=== PATIENT | female | born 1955 | race African-American/Black ===

== ENCOUNTER 2019-10-10 00:12 | Emergency (ER) | payer OTHER ==
--- OUTSIDE RECORDS SUMMARY | 2019-10-10 00:15 | XMS REPORT | Continuity of Care Document ---
:1955 Author Organization [facility] t Address [address] [place] [address] Care Team Providers Name Role Phone Catherine Bo Attending Clinician Provider, Urgent Care Attending Clinician Unavailable Problems This patient has no known problems. Allergies, Adverse Reactions, Alerts This patient has no known allergies or adverse reactions. Medications This patient has no known medications. Procedures This patient has no known procedures. Encounters Start End Encounter Admission Attending Care Care Encounter Source Date/Time Date/Time Type Type Clinicians Facility Department ID 2019-10-09 2019-10-09 Telephone Hussain [facility] [id number] 00:00:00 00:00:00 [facility] [id number] [place] [id number] Professio [phone] [phone] 2019-10-07 2019-10-07 Urgent Provider, [facility] [id number] 11:06:10 11:26:10 Care [facility] [id number] Care [place] [id number] Professio [phone] nal [phone] Results This patient has no known results.
--- OUTSIDE RECORDS SUMMARY | 2019-10-10 00:16 | XMS REPORT | Summary of Care ---
:1955 Author Organization [facility] Address [address] [place] [address] Care Team Providers Name Role Phone Pete Grace Primary Care Provider Reason for Visit Reason Comments Sinus Problem Left side of face pain Encounter Details Date Type Department Care Team Description 10/07/2019 Urgent Care [facility] Family Marcela Mejia FNP [address] [place] [id number] Acute non-recurrent pansinusitis (Primar y Dx); [facility] Provider, [facility] Acute URI; [address] [place] [address] [place] [address] Allergies Active Allergy Reactions Severity Noted Date Comments Codeine Other - See comments 12/17/2013 Pt stat es she gets "spaced out" documented as of this encounter (statuses as of 10/07/2019) Medications Medication Sig Dispensed Refills Start Date End Date Status metoprolol tartrate Take 100 mg by 0 Active (LOPRESSOR) 100 mg mouth 2 (two) tablet times daily. linagliptin (TRADJENTA) Take 5 mg by 0 Active 5 mg Tab mouth daily. insulin glargine inject 20 Units 0 Active (LANTUS) 100 unit/mL under the skin injection at bedtime. lisinopril-hydrochloroth Take 1 Tab by 0 Active iazide mouth daily. (PRINZIDE,ZESTORETIC) 20-25 mg per tablet Cholecalciferol, Vitamin Take 2,000 Units 0 Active D3, (VITAMIN D3) 2,000 by mouth daily. unit Cap cyclobenzaprine Take 2 Tabs by 180 Tab 0 02/11/2015 Active (FLEXERIL) 5 mg mouth at bedtime tabletIndications: as needed for Fibromyalgia Muscle Spasms. citalopram (CELEXA) 20 Take 2 Tabs by 180 Tab 0 02/11/2015 Active mg tabletIndications: mouth daily. Fibromyalgia Additional information Patient taking differently: 20 mg Oral DAILY, Reported on 05/05/2015 10:56 AM amoxicillin-clavulanate Take 1 20 tablet 0 10/07/201910/16 Active (AUGMENTIN) 875-125 mg per tablet by tabletIndications: Acute mouth 2 non-recurrent pansinusitis (two) times daily for 10 days. fluticasone propionate 50 Use 2 16 g 0 10/07/2019 Active mcg/actuation nasal Sprays in sprayIndications: Acute each non-recurrent pansinusitis, nostril Acute URI daily. loratadine 10 mg Take 1 30 tablet 0 10/07/2019 Ac tive tabletIndications: Acute tablet by non-recurrent pansinusitis, mouth Acute URI daily. atorvastatin (LIPITOR) 20 Take by 0 10/28/2014 Discontinued mg tablet mouth at (Discontin ued bedtime. by another clinician) metFORMIN (GLUCOPHAGE) Take 1,000 0 2019 Discontinued 1,000 mg tablet mg by (Dis continued mouth 2 by another (two) clinician) times daily with meals. documented as of this encounter (statuses as of 10/07/2019) Active Problems Problem Noted Date LEO on CPAP 05/05/2015 Transaminitis 10/28/2014 Positive anti-CCP test 04/29/2014 Rheumatoid factor positive 12/17/2013 Fibromyalgia 12/17/2013 Sleep apnea 12/17/2013 Depression 12/17/2013 FDC current use of non-steroidal anti-inflammato whitney (NSAID) 12/17/2013 Sicca 12/17/2013 documented as of this encounter (statuses as of 10/07/2019) Social History Tobacco Use Types Packs/Day Years Used Date Never Smoker Smokeless Tobacco: Never Used Alcohol Use Drinks/Week oz/Week Comments No Sex Assigned at Date Recorded Not on file Job Start Date Occupation Industry Not on file Not on file Not on file Travel History Travel Start Travel End No recent travel history available. documented as of this encounter Last Filed Vital Signs Vital Sign Reading Time Taken Comments Blood Pressure 164/82 10/07/2019 11:22 AM CDT Pulse 96 10/07/2019 11:19 AM CDT Temperature 36.8 C (98.2 F) 10/07/2019 11:19 AM CDT Respiratory Rate 18 10/07/2019 11:19 AM CDT Oxygen Saturation 99% 10/07/2019 11:19 AM CDT Inhaled Oxygen Concentration - - Weight 89.4 kg (197 lb) 10/07/2019 11:19 AM CDT Height 152.4 cm (5') 10/07/2019 11:19 AM CDT Body Mass Index 38.47 10/07/2019 11:19 AM CDT documented in this encounter Progress Notes Angela Nixon PA - 10/07/2019 11:20 AM CDT Cc: Chief Complaint Patient presents with Eye Problem Left side of face pain Giovanna Bailon is a 64 year old female. Patient presents with URI symptoms that began 6 days ago. Believes she has a sinus infection. Travel: no. COVID19 exposure? no. Sick Contacts? no PCP-provider in [place] Sinus Problem Pain details: Location: Frontal and maxillary Quality: Pressure Duration: 6 days Chronicity: New Relieved by: ibuprofen helps Worsened by: Nothing Associated symptoms: chills, congestion and sneezing Associated symptoms: no chest pain, no cough, no ear pain, no fatigue, no fever, no headaches, no hoarse voice, no mouth breathing, no nausea, no rhinorrhea, no shortness of breath, no snoring, no sorethroat, no swollen glands, no tooth pain, no vertigo, no vomiting and no wheezing Risk factors: diabetes Allergies Giovanna is allergic to codeine. Medications Outpatient Medications Prior to Visit Medication Sig Dispense Refill lisinopril-hydrochlorothiazide (PRINZIDE,ZESTORETIC) 20-25 mg per tablet Take 1 Tab by mouth daily. metFORMIN (GLUCOPHAGE) 1,000 mg tablet Take 1,000 mg by mouth 2 (two) times daily with meals. citalopram (CELEXA) 20 mg tablet Take 2 Tabs by mouth daily. (Patient taking differently: Take 20 mg by mouth daily.) 180 Tab 0 cyclobenzaprine (FLEXERIL) 5 mg tablet Take 2 Tabs by mouth at bedtime as needed for Muscle Spasms. 180 Tab 0 atorvastatin (LIPITOR) 20 mg tablet Take by mouth at bedtime. Cholecalciferol, Vitamin D3, (VITAMIN D3) 2,000 unit Cap Take 2,000 Units by mouth daily. insulin glargine (LANTUS) 100 unit/mL injection inject 20 Units under the skin at bedtime. linagliptin (TRADJENTA) 5 mg Tab Take 5 mg by mouth daily. metoprolol tartrate (LOPRESSOR) 100 mg tablet Take 100 mg by mouth 2 (two) times daily. No facility-administered medications prior to visit. Histories Past Medical History: Diagnosis Date Depression DM (diabetes mellitus) on insulin HTN (hypertension) Hypertensive retinopathy of both eyes Lymphedema Mitral valve prolapse Positive anti-CCP test low titer at 26, unable to use plaquenil due to hypertensive retinopathy Rheumatoid factor positive 54 from outside [facility], 117 at [facility] Past Surgical History: Procedure Laterality Date HYSTERECTOMY TONSILLECTOMY WITH ADENOIDECTOMY TUBAL LIGATION Social History Socioeconomic History Marital status: Spouse name: Not on file Number of children: Not on file Years of education: Not on file Highest education level: Not on file Occupational History Not on file Social Needs Financial resource strain: Not on file Food insecurity: Worry: Not on file Inability: Not on file Transportation needs: Medical: Not on file Non-medical: Not on file Tobacco Use Smoking status: Never Smoker Smokeless tobacco: Never Used Substance and Sexual Activity Alcohol use: No Drug use: Not on file Sexual activity: Not on file Lifestyle Physical activity: Days per week: Not on file Minutes per session: Not on file Stress: Not on file Relationships Social connections: Talks on phone: Not on file Gets together: Not on file Attends gnosticism service: Not on file Active member of club or organization: Not on file Attends meetings of clubs or organizations: Not on file Relationship status: Not on file Intimate partner violence: Fear of current or ex partner: Not on file Emotionally abused: Not on file Physically abused: Not on file Forced sexual activity: Not on file Other Topics Concern Not on file Social History Narrative Lives at home with and grandson Family History Problem Relation Age of Onset Diabetes Father Diabetes Maternal Aunt Hypertension Mother Hypertension Sister Hypertension Father Review of Systems Constitutional: Positive for chills. Negative for activity change, appetite change, diaphoresis, fatigue and fever. HENT: Positive for congestion, postnasal drip and sneezing. Negative for dental problem, drooling, ear discharge, ear pain, facial swelling, hearing loss, hoarse voice, mouth sores, rhinorrhea, sinus pressure, sore throat, trouble swallowing and voice change. Eyes: Positive for discharge (watery) and itching. Negative for photophobia, pain, redness and visual disturbance. Respiratory: Negative for snoring, cough, choking, chest tightness, shortness of breath and wheezing. Cardiovascular: Negative for chest pain, palpitations and leg swelling. Gastrointestinal: Negative for abdominal pain, constipation, diarrhea, nausea and vomiting. Musculoskeletal: Negative for arthralgias, back pain, gait problem, joint swelling, myalgias, neck pain and neck stiffness. Skin: Negative for color change and rash. Neurological: Negative for dizziness, vertigo, syncope, weakness, light- headedness and headaches. Psychiatric/Behavioral: Negative for confusion. Vital Signs BP (!) 164/82 | Pulse 96 | Temp 36.8 C (98.2 F) (Oral) | Resp 18 | Ht 5' (1.524 m) | Wt 197lb (89.4 kg) | SpO2 99% | BMI 38.47 kg/m Vitals: 10/07/19 1119 10/07/19 1122 BP: (!) 167/85 (!) 164/82 Pulse: 96 Resp: 18 Temp: 36.8 C (98.2 F) TempSrc: Oral SpO2: 99% Weight: 197 lb (89.4 kg) Height: 5' (1.524 m) Physical Exam Constitutional: She is oriented to person, place, and time. She appears well- developed and well-nourished. No distress. HENT: Head: Normocephalic and atraumatic. Right Ear: External ear normal. Left Ear: External ear normal. Nose: Mucosal edema present. No rhinorrhea. Right sinus exhibits no maxillary sinus tenderness and no frontal sinus tenderness. Left sinus exhibits maxillary sinus tenderness and frontal sinus tenderness. Eyes: Pupils are equal, round, and reactive to light. Conjunctivae, EOM and lids are normal. Right eye exhibits no discharge, no exudate and no hordeolum. No foreign body present in the right eye. Lefteye exhibits no discharge, no exudate and no hordeolum. No foreign body present in the left eye. Right conjunctiva is not injected. Right conjunctiva has no hemorrhage. Left conjunctiva is not injected. Left conjunctiva has no hemorrhage. Neck: Normal range of motion. Cardiovascular: Normal rate, regular rhythm and normal heart sounds. Pulmonary/Chest: Effort normal and breath sounds normal. No respiratory distress. She has no wheezes. She has no rales. Abdominal: Soft. Bowel sounds are normal. She exhibits no distension. There is no tenderness. Musculoskeletal: Normal range of motion. She exhibits no edema. Neurological: She is alert and oriented to person, place, and time. Skin: Skin is warm and dry. No rash noted. She is not diaphoretic. No erythema. No pallor. Psychiatric: She has a normal mood and affect. Her behavior is normal. Nursing note and vitals reviewed. Assessment/Plan Acute non-recurrent pansinusitis (primary encounter diagnosis) Acute URI Plan: amoxicillin-clavulanate (AUGMENTIN) 875-125 mg per tablet, fluticasone propionate 50 mcg/actuation nasal spray, COVID-19 (PCR MOLECULAR TESTING), COVID-19 (PCR MOLECULAR TESTING), loratadine 10 mg tablet Afebrile, well appearing, non-toxic, NAD. HR < 100, lungs CTAB, O2 sat 99%. COVID-19 ordered. Likely 2/2 sinusitis. Given duration of symptoms with no improvement with conservative therapy will start on antibiotic therapy. Educated on the following at home care: -Take full course of Augmentin with food and probiotic. -Start flonase: 1-2 sprays in each nostril daily -Start loratadine daily -Take OTC plain Mucinex (guaiafenesin) as needed -Increase water intake -Take over the counter vitamin C/multivitamin with vitamin C -Take Tylenol as needed, avoid nsaids -REST -Wash hands often -Cover mouth when coughing -Wear mask with in the same room/car as others -Gargle with warm salt water as needed -Drink warm liquids as needed. -Throat lozenges as needed -Quarantine until your COVID results are back -Stay in your own bedroom and use a separate bathroom -Keep at least 6 feet from you and others -Avoid sharing personal household items, dishes, glasses, cups, towels -Clean high traffic/touch areas daily. These include but not limited to: doorknobs, refrigerator/cabinet handles, phones, keyboards, tablets, light switches. -Monitor your symptoms. Take your temperature 2 times daily. -Follow-up with PCP as needed, if no improvement. -Monitor your symptoms. Go to the ED if worsening symptoms: chest pain, difficulty breathing, coughing up blood, weakness, dizziness, passing out, AMS. -[facility] handout provided Essential hypertension Plan: BP elevated today. No cp, sob, dizziness, syncope. Managed by PCP in [place]. Encouraged to monitorBP at home and follow-up with PCP. Patient reports understanding and agrees Watch blood pressure: check 2-3 times daily and log. Look for high numbers >= 130/80. Low salt Low caffeine diet Low alcohol Avoid tobacco products. Avoid decongestants Heart Healthy Exercise: total of 150 minutes of cardio: walking,swimming, hiking, biking every week. Heart healthy diet: low fat/carb/sugar diet; increase lean meat-chicken, turkey, fish; increase vegetables/fruits ( still be careful because elevated sugar level) Er--> chest pain, dizziness, passing out, fluttering of heart, shortness of breath. Pt ed/precautions given in detail regarding conditions/medicaitons. Er precautions given. Pt reportsunderstanding and agrees. rtc if s/s worsen or do not improve ; Plan of care, desired health behaviors, goals, Ddx, & any prescribed or OTC medications discussed with patient. Education resources & self management tools provided and reviewed with AVS. Patient/guardian/family verbalized understanding & agrees to plan of care. Barriers to care: NONE Ability to manage care: Good This visit did not involve counseling and coordination that comprised more than 50% of the visit time. Mel Gonzalez MA - 10/07/2019 11:20 AM CDTPatient states " Uh right here on my left side I'm hurting behind my eyeballs going down this side (patient points to the left side of face) of my face. Last or Saturday it started>" documented in this encounter Plan of Treatment Name Type Priority Associated Diagnoses Order S ewa DINHID-19 (PCR MOLECULAR LAB Routine Acute UR I Expected: 10/07/2019, TESTING) Acute non-recurrent Expires: 10/06/2020 pansinusitis Health Maintenance Due Date Last Done Comments DTaP,Tdap,and Td Vaccines (1 - 1966 Tdap) Depression Screening 1967 PAP SMEAR 1976 Breast Cancer Screening 1995 (MAMMOGRAM) COLONOSCOPY 2005 Zoster Recombinant Vaccine 2005 (SHINGRIX) (1 of 2) INFLUENZA VACCINE (#1) 2019 HEPATITIS C (HCV) SCREEN Completed 12/17/2013 PNEUMOCOCCAL 0-64 YEARS COMBINED Aged Out No longer eligible based on SERIES patient's age to complete this topic documented as of this encounter Results Not on filedocumented in this encounter Visit Diagnoses Diagnosis Acute non-recurrent pansinusitis - Prima ry Acute URI Acute upper respiratory infections of un specified site Essential hypertension Unspecified essential hypertension documented in this encounter Advance Directives Name Relationship Healthcare Agent Communication Relationship Roberth Bailon Spouse Primary healthcare agent [email or web address]
--- OUTSIDE RECORDS SUMMARY | 2019-10-10 00:17 | XMS REPORT | Summary of Care ---
:1955 Author Organization [facility] Address [address] [place] [id number] Care Team Providers Name Role Phone Sanjay Pete Primary Care Provider Reason for Visit Reason Comments Results Encounter Details Date Type Department Care Team Description 10/09/2019 Telephone [facility] Family Medicine Lynnette martinez, ASHUTOSH Martins Results - [address] [place] [address] [place] [address] [place] [address] [phone] Allergies Active Allergy Reactions Severity Noted Date Comments Codeine Other - See comments 12/17/2013 Pt stat es she gets "spaced out" documented as of this encounter (statuses as of 10/09/2019) Medications Medication Sig Dispensed Refills Start Date [...] on 05/05/2015 10:56 AM amoxicillin-clavulanate Take 1 tablet 20 tablet 0 10/07/2019 0 10/17/2019 Active (AUGMENTIN) 875-125 mg per by mouth 2 tabletIndications: Acute (two) times non-recurrent pansinusitis daily for 10 days. fluticasone propionate 50 Use 2 Sprays 16 g 0 10/07/2019 Active mcg/actuation nasal in each sprayIndications: Acute nostril daily. non-recurrent pansinusitis, Acute URI loratadine 10 mg Take 1 tablet 30 tablet 0 10/07/2019 Active tabletIndications: Acute by mouth non-recurrent pansinusitis, daily. 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 documented as of this encounter Last Filed Vital Signs Not on filedocumented in this encounter Plan of Treatment Health Maintenance Due Date Last Done Comments [...] Results Not on filedocumented in this encounter Additional Health Concerns Infection Onset Date Last Indicated Resolved Time COVID-19 Rule Out 10/07/2019 10/07/2019 10/09/2019 4: 02 PM CDT documented as of this encounter Insurance Payer Benefit Plan / Subscriber ID Effective Phone Address [facility] Group Dates MARYAN STEINBERG [id number] 2013-Pre [facility]ha [employer] sent [facility] [id number] 2015-Pre [phone] [address] HEALTH CHOICE HEALTH CHOICE sent [phone] [place] [address] documented as of this encounter Advance Directives Name Relationship Healthcare Agent Communication Relationship Roberth Bailon Spouse Primary healthcare agent [email or web address]
[2019-10-10 01:09] LABS: Absolute Lymphocytes (CBC) 2.9 K/uL (0.7-4.9); Basophils % 1.3 % (0-1.3); Hematocrit 41.3 % (36.0-45.0); Lymphocytes % 34.9 % (15.3-44.8); MPV 9.2 fL (7.6-11.3); RBC Red Blood Cell Count 5.18 M/uL (3.86-4.86)
[2019-10-10 01:13] LABS: Protime INR 0.99
[2019-10-10 01:30] LABS: Albumin 3.2 g/dL (3.4-5.0); Bilirubin Direct 0.1 mg/dL (0-0.2); Bilirubin Total 0.3 mg/dL (0.2-1.0); Protein, Total 8.1 g/dL (6.4-8.2); Troponin (Emerg Dept Use Only) 0.04 ng/mL (0.0-0.045)
[2019-10-10 01:31] LABS: Magnesium 2.2 mg/dL (1.8-2.4); Potassium 3.9 mmol/L (3.5-5.1)
--- NOTE | 2019-10-10 02:17 | ER ---
Nurse's Notes [facility] Name: Giovanna Bailon Age: 64 yrs Sex: Female : 1955 Arrival Date: 10/10/2019 Time: 00:18 Bed 3 Private MD: Diagnosis: Headache;Confusional arousals Presentation: 10/09 00:29 Chief complaint: Patient's son or daughter states: She has been losing her memory, its sg gotten worse today, shes just been complaining that shes feeling tired and weak, as well as having a headache that began two days ago but worse tonight. Coronavirus screen: Patient denies a cough. Patient denies shortness of breath or difficulty breathing. Patient denies measured and/or subjective temperature greater than 100.4F prior to today's visit. Patient denies travel on a cruise ship or to a country the [facility] currently lists as an affected area. Patient denies contact with known and/or suspected case of COVID-19. Ebola Screen: Patient negative for fever greater than or equal to 101.5 degrees Fahrenheit, and additional compatible Ebola Virus Disease symptoms Patient denies exposure to infectious person. Patient denies travel to an Ebola-affected area in the 21 days before illness onset. No symptoms or risks identified at this time. Initial Sepsis Screen: Does the patient meet any 2 criteria? No. Patient's initial sepsis screen is negative. Does the patient have a suspected source of infection? No. Patient's initial sepsis screen is negative. Risk Assessment: Do you want to hurt yourself or someone else? Patient reports no desire to harm self or others. Onset of symptoms was October 10, 2019. Care prior to arrival: None. 00:29 Method Of Arrival: Wheelchair sg 00:29 Acuity: SATYA 3 sg Triage Assessment: 00:37 Headache History: Denies prior headaches. General: Appears in no apparent distress. ea Behavior is calm, cooperative, appropriate for age. Pain: Complains of pain in headache. Neuro: Level of Consciousness is awake, alert, obeys commands, Oriented to person, place, time. Derm: Skin is pink, warm \T\ dry. Historical: - Allergies: 00:31 Codeine; sg - PMHx: 00:32 Diabetes - IDDM; sg 00:33 Hypertension; Fibromyalgia; sg - PSHx: 00:31 Hysterectomy; Tubal ligation; Adenoids; Tonsillectomy; sg - Immunization history:: Adult Immunizations up to date. - Social history:: Smoking status: Patient denies any tobacco usage or history of. Screenin:36 Abuse screen: Denies threats or abuse. Nutritional screening: No deficits noted. ea Tuberculosis screening: No symptoms or risk factors identified. Fall Risk Fall in past 12 months (25 points). Assessment: 00:40 Reassessment: See triage assessment. General: Appears in no apparent distress. Behavior ea is appropriate for age. Pain: Complains of pain in forehead. 01:51 Reassessment: Patient and/or family updated on plan of care and expected duration. Pain ea level reassessed. Patient is alert, oriented x 3, equal unlabored respirations, skin warm/dry/pink. 02:29 Reassessment: Patient and/or family updated on plan of care and expected duration. Pain ea level reassessed. Patient is alert, oriented x 3, equal unlabored respirations, skin warm/dry/pink. Discharge instruction given to patient and family. Verbalized the understanding of instruction. Pt left ED ambulatory accompanied by family. Vital Signs: 00:37 BP 174 / 88; Pulse 95; Resp 18; Temp 98.6; Pulse Ox 99% on R/A; Weight 89.36 kg; Height ea 5 ft. 8 in. (172.72 cm); 01:28 BP 139 / 87; Pulse 85; Resp 18; Pulse Ox 99% ; ea 02:31 BP 128 / 70; Pulse 80; Resp 18; Pulse Ox 18% ; ea 00:37 Body Mass Index 29.95 (89.36 kg, 172.72 cm) ea ED Course: 00:18 Patient arrived in ED. ag3 00:25 Boris Okeefe PA is PHCP. jr8 00:25 Milton Andrews MD is Attending Physician. jr8 00:29 Kenya Greenwood, LOUISE is Primary Nurse. ea 00:29 Arm band placed on. sg 00:31 Triage completed. sg 00:36 Patient has correct armband on for positive identification. Bed in low position. Call ea light in reach. Side rails up X 1. Adult w/ patient. 01:24 CT Head Brain wo Cont In Process Unspecified. EDMS 01:26 Inserted saline lock: 20 gauge in left forearm, using aseptic technique. ea 01:56 XRAY Chest (1 view) In Process Unspecified. EDMS 02:16 Omar Aguiar MD is Referral Physician. jr8 02:29 No provider procedures requiring assistance completed. IV discontinued, intact, ea bleeding controlled, No redness/swelling at site. Pressure dressing applied. Administered Medications: No medications were administered Outcome: 02:17 Discharge ordered by . jr8 02:30 Discharged to home ambulatory, with family. ea 02:30 Condition: stable 02:30 Discharge instructions given to patient, Instructed on discharge instructions, follow up and referral plans. Demonstrated understanding of instructions, follow-up care. 02:30 Patient left the ED. ea Signatures: Dispatcher [employer] EDMS Gurpreet Maldonado, RN RN Boris Roberts PA PA jr8 Kenya Greenwood RN RN ea Gomez, Alice ag3
--- NOTE | 2019-10-10 02:17 | EDPHYS ---
Physician Documentation [facility] Name: Giovanna Bailon Age: 64 yrs Sex: Female : 1955 Arrival Date: 10/10/2019 Time: 00:18 Bed 3 Private MD: ED Physician Milton Andrews HPI: 10/09 01:04 This 64 yrs old Black Female presents to ER via Wheelchair with complaints of Headache, jr8 Weakness. 01:04 The patient complains of pain to the forehead. The patient describes the headache as jr8 constant. Onset: The symptoms/episode began/occurred gradually, 7 day(s) ago. Associated signs and symptoms: Pertinent positives: altered mental status, dizziness. Severity of symptoms: At its worst the pain was moderate, in the emergency department the pain has improved. Headache History: Denies prior headaches. The symptoms are alleviated by nothing. the symptoms are aggravated by nothing. The patient has not experienced similar symptoms in the past. The patient has been recently seen by a physician:. Patient stated that she had a syncopal episode about a week ago and was worked up at [facility]. Stated that no acute findings were seen at that time and was discharged home. Stated that she had been having headaches prior to the Syncopal episode. No CT done at that time. Son stated that they came today because for the past three to four days noticed that she has been having memory problems and forgetfulness which she does not normally have. . Historical: - Allergies: 00:31 Codeine; sg - PMHx: 00:32 Diabetes - IDDM; sg 00:33 Hypertension; Fibromyalgia; sg - PSHx: 00:31 Hysterectomy; Tubal ligation; Adenoids; Tonsillectomy; sg - Immunization history:: Adult Immunizations up to date. - Social history:: Smoking status: Patient denies any tobacco usage or history of. ROS: 01:04 Eyes: Negative for injury, pain, redness, and discharge, ENT: Negative for injury, jr8 pain, and discharge, Neck: Negative for injury, pain, and swelling, Cardiovascular: Negative for chest pain, palpitations, and edema, Respiratory: Negative for shortness of breath, cough, wheezing, and pleuritic chest pain, Abdomen/GI: Negative for abdominal pain, nausea, vomiting, diarrhea, and constipation, Back: Negative for injury and pain, MS/Extremity: Negative for injury and deformity, Skin: Negative for injury, rash, and discoloration. 01:04 Neuro: Positive for altered mental status, dizziness, headache, syncope. Exam: 01:04 Eyes: Pupils equal round and reactive to light, extra-ocular motions intact. Lids and jr8 lashes normal. Conjunctiva and sclera are non-icteric and not injected. Cornea within normal limits. Periorbital areas with no swelling, redness, or edema. ENT: Nares patent. No nasal discharge, no septal abnormalities noted. Tympanic membranes are normal and external auditory canals are clear. Oropharynx with no redness, swelling, or masses, exudates, or evidence of obstruction, uvula midline. Mucous membranes moist. Neck: Trachea midline, no thyromegaly or masses palpated, and no cervical lymphadenopathy. Supple, full range of motion without nuchal rigidity, or vertebral point tenderness. No Meningismus. Cardiovascular: Regular rate and rhythm with a normal S1 and S2. No gallops, murmurs, or rubs. Normal PMI, no JVD. No pulse deficits. Respiratory: Lungs have equal breath sounds bilaterally, clear to auscultation and percussion. No rales, rhonchi or wheezes noted. No increased work of breathing, no retractions or nasal flaring. Abdomen/GI: Soft, non-tender, with normal bowel sounds. No distension or tympany. No guarding or rebound. No evidence of tenderness throughout. Back: No spinal tenderness. No costovertebral tenderness. Full range of motion. Skin: Warm, dry with normal turgor. Normal color with no rashes, no lesions, and no evidence of cellulitis. MS/ Extremity: Pulses equal, no cyanosis. Neurovascular intact. Full, normal range of motion. Neuro: Awake and alert, GCS 15, oriented to person, place, time. Some confusion noted to situation. Cranial nerves II-XII grossly intact. Motor strength 5/5 in all extremities. Sensory grossly intact. Cerebellar exam normal. Normal gait. Vital Signs: 00:37 BP 174 / 88; Pulse 95; Resp 18; Temp 98.6; Pulse Ox 99% on R/A; Weight 89.36 kg; Height ea 5 ft. 8 in. (172.72 cm); 01:28 BP 139 / 87; Pulse 85; Resp 18; Pulse Ox 99% ; ea 02:31 BP 128 / 70; Pulse 80; Resp 18; Pulse Ox 18% ; ea 00:37 Body Mass Index 29.95 (89.36 kg, 172.72 cm) ea MDM: 00:25 Patient medically screened. 02:04 Data reviewed: vital signs, nurses notes, lab test result(s), EKG, radiologic studies, CT scan, plain films. Data interpreted: Pulse oximetry: on room air is 99 %. Interpretation: normal. Counseling: I had a detailed discussion with the patient and/or guardian regarding: the historical points, exam findings, and any diagnostic results supporting the discharge/admit diagnosis, lab results, radiology results, the need for outpatient follow up, a neurologist, to return to the emergency department if symptoms worsen or persist or if there are any questions or concerns that arise at home. ED course: No acute findings on labs or imaging. Recommended f/u with neurology for MRI brain and to r/o any other neurodegenerative processes . 10/09 00:46 Order name: Basic Metabolic Panel 10/09 00:46 Order name: CBC with Diff; Complete Time: 01:13 10/09 00:46 Order name: LFT's; Complete Time: :10/09 00:46 Order name: Magnesium; Complete Time: :10/09 00:46 Order name: NT PRO-BNP; Complete Time: :37 10/09 00:46 Order name: PT-INR; Complete Time: 01:16 10/09 00:46 Order name: Troponin (emerg Dept Use Only); Complete Time: :10/09 00:46 Order name: XRAY Chest (1 view) 10/09 00:46 Order name: EKG; Complete Time: 00:49 10/09 00:46 Order name: Cardiac monitoring; Complete Time: :10/09 00:46 Order name: EKG - Nurse/Tech; Complete Time: :10/09 00:46 Order name: IV Saline Lock; Complete Time: 01:26 10/09 00:46 Order name: CT Head Brain wo Cont 10/09 00:48 Order name: Basic Metabolic Panel; Complete Time: 01:37 EDMS 07/18 00:46 Order name: Labs collected and sent; Complete Time: jr8 10/09 00:46 Order name: O2 Per Protocol; Complete Time: jr8 10/09 00:46 Order name: O2 Sat Monitoring; Complete Time: Administered Medications: No medications were administered Disposition: : Co-signature as Attending Physician, Milton Andrews MD. pk Disposition: 10/10/19 02:17 Discharged to Home. Impression: Headache, Confusional arousals. - Condition is Stable. - Discharge Instructions: Confusion, General Headache Without Cause. - Medication Reconciliation Form, Thank You Letter, Antibiotic Education, Prescription Opioid Use form. - Follow up: Omar Aguiar MD; When: 5 - 6 days; Reason: Recheck today's complaints, Continuance of care, Re-evaluation by your physician. - Problem is new. - Symptoms are unchanged. Signatures: Dispatcher [employer] EDNM Gurpreet Maldonado RN Milton Potts MD MD pk Boris Okeefe PA PA jr8 Kenya Greenwood RN RN ea Corrections: (The following items were deleted from the chart) 02:30 02:17 10/10/2019 02:17 Discharged to Home. Impression: Headache; Confusional arousals. ea Condition is Stable. Forms are Medication Reconciliation Form, Thank You Letter, Antibiotic Education, Prescription Opioid Use. Follow up: Omar Aguiar; When: 5 - 6 days; Reason: Recheck today's complaints, Continuance of care, Re-evaluation by your physician. Problem is new. Symptoms are unchanged. jr8
[2019-10-10 03:08] VITALS: TEMP 98.6; O2SAT 99
[2019-10-10 03:09] VITALS: BP 139/87
--- NOTE | 2019-10-10 10:56 | RAD REPORT ---
EXAM DESCRIPTION: Ashley Single View10/10/2019 1:56 am CLINICAL HISTORY: sob COMPARISON: 2014 FINDINGS: The lungs appear clear of acute infiltrate. The heart is borderline enlarged IMPRESSION: No acute abnormalities displayed
--- NOTE | 2019-10-11 08:10 | EKG ---
Test Date: 2019-10-10 Test Time: 01:22:53 Fixing Machine Operator: LESVIA MEASUREMENT RESULTS: Intervals: Rate: 87 NM: 136 QRSD: 74 QT: 380 QTc: 457 [place]: P: 73 NM: 136 QRS: 36 T: 36 INTERPRETIVE STATEMENTS: Normal sinus rhythm Normal ECG Compared to ECG 04/19/2014 06:44:40 No significant changes Electronically Signed On 10-11-19 08:08:58 CDT by Lenny Armenta
--- NOTE | 2019-10-12 08:18 | RAD REPORT ---
EXAM DESCRIPTION: CT - Head Brain Wo Cont - 10/10/2019 7:21 am CLINICAL HISTORY: The patient is 64 years old and is Female; Headache;Mental status change TECHNIQUE: Axial computed tomography images of the head/brain without intravenous contrast. Sagitt al and coronal reformatted images were created and reviewed. This CT exam was performed using one o r more of the following dose reduction techniques: automated exposure control, adjustment of the mA and/or kV according to patient size, and/or use of iterative reconstruction technique. COMPARISON: No relevant prior studies available. FINDINGS: BRAIN: No intracranial hemorrhage, mass effect, or midline shift is seen. There are no e xtra-axial fluid collections. There is patchy hypoattenuation of the deep white matter which is non-s pecific, but most likely owing to chronic small vessel ischemic change in a patient of this age group . The downing-white differentiation is maintained. There is no cerebral edema. VENTRICLES: Unremarkable. No ventriculomegaly. BONES/JOINTS: No acute fracture. SOFT TISSUES: Unremarkable. SINUSES: Unremarkable as visualized. No acute sinusitis. MASTOID AIR CELLS: Unremarkable as visualized. No mastoid effusion. ORBITS: Unremarkable as visualized. IMPRESSION: No acute intracranial findings. Electronically signed by: Madeleine Mcdonald MD 10/10/2019 1:48 AM CDT Due to temporary technical issues with the PACS/Fluency reporting system, reports are being signed by the in house radiologist without review as a courtesy to ensure prompt reporting. The interpreting r adiologist is fully responsible for the content of the report.
== END 2019-10-10 02:30 | disposition home or self-care (01) ==
LOC: ER 00:12
DX: G47.51 Confusional arousals (principal); I10 Essential (primary) hypertension; Z88.5 Allergy status to narcotic agent
CPT/HCPCS: 36415; 70450; 71045; 80048; 80076; 83735; 83880; 84484; 85025; 85610; 93005; 99283

== ENCOUNTER 2019-10-16 12:23 | Observation (INO) | payer OTHER ==
--- OUTSIDE RECORDS SUMMARY | 2019-10-16 12:26 | XMS REPORT | Continuity of Care Document ---
:1955 Author Organization [facility] t Address [address] [place] [address] Care Team Providers Name Role Phone Catherine [...] Facility Department ID 2019-10-09 2019-10-09 Telephone Hussain [facility] [id number] 00:00:00 00:00:00 [facility] [id number] [place] [id number] [facility]io [phone] [address]al [address] 2019-10-07 2019-10-07 Urgent Provider, [facility] [id number] 11:06:10 11:26:10 Care [facility] [id number] Care [place] [id number] Professio [phone] nal [phone] Results This patient has no known results.
--- NOTE | 2019-10-16 12:42 | RAD REPORT ---
EXAM DESCRIPTION: CT - Ct Stroke Brain Wo Cont - 10/16/2019 12:32 pm CLINICAL HISTORY: Slurred speech COMPARISON: October 10, 2019 TECHNIQUE: Computed axial tomography of the head was obtained. All CT scans are performed using dose optimization technique as appropriate and may include automated exposure control or mA/KV adjustment according to patient size. FINDINGS: An intracranial bleed is not seen . The ventricles are normal in caliber. No extra-axial fluid collection is noted. Mild low-density within periventricular, deep and subcortical white matter likely ischemic changes se condary to small vessel disease Fluid within the sinuses/ mastoids is not seen. IMPRESSION: No acute intracranial abnormality is seen. If patient's symptoms persist MRI of the bra in would be recommended. Dr Fajardo of the emergency room was notified at 12:37 p.m. on October 16, 2019
[2019-10-16] MEDS ORDERED: LORazepam 2 MG/ML VIAL ONE (12:44)
[2019-10-16] MEDS ORDERED: levETIRAcetam 1,000 MG in NA CHLORIDE 0.9% 100 ML IV ONE (12:45)
[2019-10-16 12:55] LABS: Absolute Lymphocytes (CBC) 2.7 K/uL (0.7-4.9); Hematocrit 43.8 % (36.0-45.0); Lymphocytes % 24.9 % (15.3-44.8); RBC Red Blood Cell Count 5.48 M/uL (3.86-4.86)
[2019-10-16 12:58] LABS: Protime INR 1.03
[2019-10-16 13:16] LABS: Albumin 3.5 g/dL (3.4-5.0); Bilirubin Direct 0.1 mg/dL (0-0.2); Bilirubin Total 0.5 mg/dL (0.2-1.0); Magnesium 2.2 mg/dL (1.8-2.4); Potassium 3.6 mmol/L (3.5-5.1); Protein, Total 8.7 g/dL (6.4-8.2); Troponin (Emerg Dept Use Only) 0.03 ng/mL (0.0-0.045)
--- NOTE | 2019-10-16 14:19 | RAD REPORT ---
EXAM DESCRIPTION: MRI - Brain Wo Cont - 10/16/2019 2:07 pm CLINICAL HISTORY: Seizure COMPARISON: Head CT October 16, 2019 TECHNIQUE: Axial, sagittal, and coronal magnetic images of the brain were obtained. Contrast was not requested FINDINGS: Mild to moderate signal within periventricular, deep and subcortical white matter probably ischemic changes secondary small vessel disease The skull is sclerotic and thickened. This can be seen if the patient is on chronic seizure medicatio n Diffusion-weighted/ADC mapping does not reveal evidence of acute infarction. The ventricles are normal caliber. An extra-axial fluid collection is not present. Hippocampal gyri normal caliber and signal seizure Fluid within the sinuses/mastoids is not noted IMPRESSION: No acute abnormality is displayed
--- NOTE | 2019-10-16 14:38 | ER ---
Nurse's Notes [facility] Name: Giovanna Bailon Age: 64 yrs Sex: Female : 1955 Arrival Date: 10/16/2019 Time: 12:28 Bed 15 Private MD: Diagnosis: Seizures;Altered mental status, unspecified;Eduard's paralysis (postepileptic) Presentation: 10/15 12:23 Chief complaint: Patient's son or daughter states: "My mom either had a stroke or she ss had a seizure. It started about 30 minutes ago.". Ebola Screen: Patient denies exposure to infectious person. Patient denies travel to an Ebola-affected area in the 21 days before illness onset. Onset of symptoms was October 16, 2019. 12:23 Method Of Arrival: Wheelchair ss 12:23 Acuity: SATYA 1 ss 18:18 Coronavirus screen: Patient denies a cough. Patient denies shortness of breath or ks7 difficulty breathing. Patient denies measured and/or subjective temperature greater than 100.4F prior to today's visit. Patient denies travel on a cruise ship or to a country the [facility] currently lists as an affected area. Patient denies contact with known and/or suspected case of COVID-19. Patient instructed to continue to wear a mask when interacting with others. Patient moved to private room, placed in contact and droplet isolation with eye protection until further assessment. 18:18 Initial Sepsis Screen: Does the patient meet any 2 criteria? No. Patient's initial ks7 sepsis screen is negative. Risk Assessment: Do you want to hurt yourself or someone else? Patient reports no desire to harm self or others. 18:18 Initial Sepsis Screen: Does the patient have a suspected source of infection? No. ks7 Patient's initial sepsis screen is negative. Triage Assessment: 12:45 General: Appears distressed, BIB son POV: pt non-verbal, facial twitch/seizrue in ks7 triage, 2nd seizure with eyes rolling back in head and facial twitching in room witnessed by PA and RNS. son states he went for a walk with pt 1 hour ago and she was off balance. 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 In ED pt able to transfer from wheelchair to bed w/SBA only. pt non-verbal, but able to nod yes and no to questions. facial droop noted to L face, negative arm and leg drift. . Behavior is cooperative, delayed response, non-verbal. Pain: Complains of pain in MENA Quality of pain is described as unable to quantify. Historical: - Allergies: 12:41 Codeine; ss - PMHx: 12:41 Diabetes - IDDM; Fibromyalgia; Hypertension; ss - PSHx: 12:41 Hysterectomy; Tubal ligation; Adenoids; Tonsillectomy; ss - Immunization history:: Adult Immunizations up to date. - Social history:: Smoking status: Patient denies any tobacco usage or history of. Screenin:52 Abuse screen: Denies threats or abuse. Nutritional screening: No deficits noted. ks7 Tuberculosis screening: No symptoms or risk factors identified. Fall Risk No fall in past 12 months (0 pts). Secondary diagnosis (15 points) IV access (20 points). Ambulatory Aid- None/Bed Rest/Nurse Assist (0 pts). Gait- Weak (10 pts.). Mental Status- Overestimates/Forgets Limitations (15 pts.). Total Lima Fall Scale indicates High Risk Score (45 or more points). 12:52 Fall Risk Total Lima Fall Scale indicates High Risk Score (45 or more points). Side ks7 Rails Up X 2 Placed Close to Nursing Station Family Present and informed to notify staff if the need to leave the bedside. Assessment: 12:23 Reassessment: CODE STROKE CALLED. Pt to CT accompanied by me VIA wheelchair. ss Respirations even and unlabored. Pt aphasic. Seizure like activity noted while getting patient out of car. No seizure activity noted during transport to CT. Pt able to transfer self to CT table with minimal assistance. 12:32 Reassessment: Back from CT to exam room 15. Moris BOYKIN, family member and nursing ss staff at bedside to assess patient. 12:35 Reassessment: seizure activity noted again. Lasted 30 seconds. Ativan 1 mg ordered. Pt ss on monitors. 12:52 Reassessment: Patient states symptoms have not improved. pt remains non-verbal, appears ks7 comfortable after 1mg ativan. pt follows commands, nods y/n answers questions.. 14:00 Reassessment: No changes from previously documented assessment. ks7 15:00 Reassessment: Patient states symptoms have improved. ks7 16:04 Reassessment: Patient states symptoms have improved. pt able to respond/answer ks7 questions with less delay. resting comfortably in room. 17:00 Reassessment: Patient states symptoms have improved. ks7 17:45 Neuro: Level of Consciousness is awake, alert, obeys commands, Oriented to person, ks7 place, time, Motor Runner are equal bilaterally Moves all extremities. Gait is unsteady, Speech is normal, Facial symmetry appears normal. 18:02 Reassessment: attempted to call report. line busy no answer. ks7 18:23 Reassessment: son took pt wallet and debit/credit card home. pt has her cell phone and ks7 clothes. Vital Signs: 12:45 BP 143 / 82; Pulse 102; Resp 18; Temp 98.9(O); Pulse Ox 100% on R/A; Pain 0/10; ks7 13:06 BP 123 / 79; Pulse 102; Resp 16; Temp 98.9(O); Pulse Ox 100% on R/A; Pain 0/10; ks7 14:30 BP 143 / 80; Pulse 93; Resp 18; Pulse Ox 98% ; dh4 15:00 BP 136 / 83; Pulse 94; Resp 16; Temp 98(TE); Pulse Ox 100% on R/A; Pain 0/10; ks7 15:45 BP 134 / 72; Pulse 90; Resp 16; Pulse Ox 99% on R/A; Pain 0/10; ks7 16:05 BP 134 / 72; Pulse 93; Resp 18; Temp 97.9(TE); Pulse Ox 98% on R/A; Pain 0/10; ks7 16:09 Pulse Ox 99% on R/A; Pain 0/10; ks7 16:30 BP 116 / 81; Pulse 86; Resp 16; Temp 97.9(TE); Pulse Ox 98% on R/A; Pain 0/10; ks7 17:15 BP 125 / 78; Pulse 86; Resp 16; Temp 97.9(O); Pulse Ox 100% on R/A; Pain 0/10; ks7 18:19 Pulse Ox 100% ; Pain 0/10; ks7 18:26 BP 114 / 79; Pulse 89; Resp 16; Temp 97.9(TE); Pulse Ox 99% on R/A; Pain 0/10; ks7 Vitals: 12:52 Cardiac Rhythm Assessment Regular Sinus tach. ks7 NIH Stroke Scale Scores: 12:40 NIHSS Score: 14 ks7 12:40 NIHSS Score: 1 ks7 12:46 NIHSS Score: 8 jr8 ED Course: 12:28 Patient arrived in ED. hb 12:29 Boris Okeefe PA is PHCP. jr8 12:29 Christiano Fajardo MD is Attending Physician. jr8 12:32 CT Stroke Brain w/o Contrast In Process Unspecified. EDMS 12:42 Triage completed. ss 12:44 Marylou Roberto, RN is Primary Nurse. ks7 12:45 Arm band placed on left wrist. ks7 12:52 Patient has correct armband on for positive identification. Placed in gown. Bed in low ks7 position. Call light in reach. Side rails up X2. Adult w/ patient. 12:52 No provider procedures requiring assistance completed. Inserted saline lock: 20 gauge ks7 in right forearm, using aseptic technique. Blood collected. 12:57 Basic Metabolic Panel Sent. ks7 12:57 CBC with Diff Sent. ks7 12:57 LFT's Sent. ks7 12:57 Magnesium Sent. ks7 12:57 NT PRO-BNP Sent. ks7 12:57 PT-INR Sent. ks7 12:57 Troponin (emerg Dept Use Only) Sent. ks7 13:22 Patient moved to MRI via stretcher. ks7 13:57 MRI - Brain Wo Cont In Process Unspecified. EDMS 14:36 Ge Richard MD is Hospitalizing Provider. jr8 16:09 Urine Dipstick--Ancillary (enter results) Sent. ks7 16:09 Urine Microscopic Only Sent. ks7 18:18 Patient admitted, IV remains in place. ks7 Administered Medications: 13:03 Drug: Keppra 1000 mg Route: IV; Rate: calculated rate; Site: right forearm; ks7 16:09 Follow up: Pulse Ox 99% RA; Pain 0/10 Adult ks7 18:15 Drug: Rocephin 1 grams Route: IV; Rate: calculated rate; Site: right forearm; ks7 18:19 Follow up: Pulse Ox 100% ; Pain 0/10 Adult ks7 Outcome: 14:37 Decision to Hospitalize by Provider. jr8 18:16 Admitted to Med/surg accompanied by tech, via stretcher, room 221, Report called to RN john for 224 18:16 Condition: improved 18:16 Discharge instructions given to patient, family, Instructed on the need for admit, Demonstrated understanding of instructions. 18:34 Patient left the ED. ks7 NIH Stroke Scale - NIH Stroke Score Date: 10/16/2019 Time: 12:40 Total Score = 14 1a. Level of Consciousness (LOC) - 2(Not Alert, obtunded) 1b. Level of Consciousness (LOC) (Year \\T\\ Age) - 2(Neither) 1c. LOC Commands (Open \\T\\ Closes Eyes/Veterinary Assistant) - 2(Neither) 2. Best Gaze (Lateral Gaze Paresis) - 1(Partial gaze palsy) 3. Visual Field Loss - 0(No visual loss) 4. Facial Palsy - 2(Partial paralysis) 5a. Left Arm: Motor (10-second hold) - 0(No drift) 5b. Right Arm: Motor (10-second hold) - 0(No drift) 6a. Left Leg: Motor (5-second hold - always test supine) - 0(No drift) 6b. Right Leg: Motor (5-second hold - always test supine) - 0(No drift) 7. Limb Ataxia (finger/nose \\T\\ heel/weber - test with eyes open) - 0(Absent) 8. Sensory Loss (pinprick arms/legs/face) - 0(Normal) 9. Best Language: Aphasia (description/naming/reading) - 3(Mute, global aphasia) 10. Dysarthria (speech clarity - read or repeat words) - 2(Severe) 11. Extinction and Inattention (visual/tactile/auditory/spatial/personal) - 0(No abnormality) Initials: ks7 NIH Stroke Scale - NIH Stroke Score Date: 10/16/2019 Time: 12:40 Total Score = 1 1a. Level of Consciousness (LOC) - 0(Alert) 1b. Level of Consciousness (LOC) (Year \\T\\ Age) - 0(Both) 1c. LOC Commands (Open \\T\\ Closes Eyes/Veterinary Assistant) - 0(Both) 2. Best Gaze (Lateral Gaze Paresis) - 0(Normal) 3. Visual Field Loss - 0(No visual loss) 4. Facial Palsy - 1(Minor Paralysis) 5a. Left Arm: Motor (10-second hold) - 0(No drift) 5b. Right Arm: Motor (10-second hold) - 0(No drift) 6a. Left Leg: Motor (5-second hold - always test supine) - 0(No drift) 6b. Right Leg: Motor (5-second hold - always test supine) - 0(No drift) 7. Limb Ataxia (finger/nose \\T\\ heel/weber - test with eyes open) - 0(Absent) 8. Sensory Loss (pinprick arms/legs/face) - 0(Normal) 9. Best Language: Aphasia (description/naming/reading) - 0(No aphasia) 10. Dysarthria (speech clarity - read or repeat words) - 0(Normal) 11. Extinction and Inattention (visual/tactile/auditory/spatial/personal) - 0(No abnormality) Initials: ks7 NIH Stroke Scale - NIH Stroke Score Date: 10/16/2019 Time: 12:46 Total Score = 8 1a. Level of Consciousness (LOC) - 1(Not Alert) 1b. Level of Consciousness (LOC) (Year \\T\\ Age) - 2(Neither) 1c. LOC Commands (Open \\T\\ Closes Eyes/Veterinary Assistant) - 0(Both) 2. Best Gaze (Lateral Gaze Paresis) - 0(Normal) 3. Visual Field Loss - 0(No visual loss) 4. Facial Palsy - 1(Minor Paralysis) 5a. Left Arm: Motor (10-second hold) - 0(No drift) 5b. Right Arm: Motor (10-second hold) - 0(No drift) 6a. Left Leg: Motor (5-second hold - always test supine) - 0(No drift) 6b. Right Leg: Motor (5-second hold - always test supine) - 0(No drift) 7. Limb Ataxia (finger/nose \\T\\ heel/weber - test with eyes open) - 0(Absent) 8. Sensory Loss (pinprick arms/legs/face) - 0(Normal) 9. Best Language: Aphasia (description/naming/reading) - 2(Severe aphasia) 10. Dysarthria (speech clarity - read or repeat words) - 2(Severe) 11. Extinction and Inattention (visual/tactile/auditory/spatial/personal) - 0(No abnormality) Initials: jr8 Signatures: Dispatcher [employer] EDWV Elli Baer, LOUISE RN Boris Calixto PA PA jr8 Shakira Adan RN RN Dada Sorto 4 Marylou Roberto RN RN ks7 Corrections: (The following items were deleted from the chart) 12:40 12:23 Reassessment: Back from CT to exam room 15. Moris BOYKIN, family ss member and nursing staff at bedside to assess patient ss
--- NOTE | 2019-10-16 14:38 | EDPHYS ---
Physician Documentation [facility] Name: Giovanna Bailon Age: 64 yrs Sex: Female : 1955 Arrival Date: 10/16/2019 Time: 12:28 Bed 15 Private MD: ED Physician Christiano Fajardo HPI: 10/15 12:46 This 64 yrs old Black Female presents to ER via Wheelchair with complaints of seizures. jr8 12:46 The patient's problem is reported as an apparent seizure, with the patient having jr8 multiple episodes, Episodes lasted less that one minute. Motor activity is described as generalized stiffness, facial twitching dysphasia, incoherent speech. Onset: The symptoms/episode began/occurred acutely, today, at 12:00. Context: the episode(s) was witnessed, by family, occurred at home. Associated signs and symptoms: The patient has no apparent associated signs or symptoms. Severity of symptoms: At their worst the symptoms were moderate in the emergency department the symptoms are unchanged. The patient has not experienced similar symptoms in the past. The patient has been recently seen at the [facility] Emergency Department. Patient seen last week for memory changes. Work up completed and without acute findings. Was told to f/u with neurology which family stated that they have mad appointment but today at approximately noon started to have seizure like activity. Was brought to ED at that time POV for further evaluation . Historical: - Allergies: 12:41 Codeine; ss - PMHx: 12:41 Diabetes - IDDM; Fibromyalgia; Hypertension; ss - PSHx: 12:41 Hysterectomy; Tubal ligation; Adenoids; Tonsillectomy; ss - Immunization history:: Adult Immunizations up to date. - Social history:: Smoking status: Patient denies any tobacco usage or history of. ROS: 12:46 Unable to obtain ROS due to altered mental status. jr8 Exam: 12:46 Radiologist reports: No acute findings on CT jr8 12:46 Eyes: Pupils equal round and reactive to light, extra-ocular motions intact. Lids and lashes normal. Conjunctiva and sclera are non-icteric and not injected. Cornea within normal limits. Periorbital areas with no swelling, redness, or edema. ENT: Nares patent. No nasal discharge, no septal abnormalities noted. Tympanic membranes are normal and external auditory canals are clear. Oropharynx with no redness, swelling, or masses, exudates, or evidence of obstruction, uvula midline. Mucous membranes moist. Neck: Trachea midline, no thyromegaly or masses palpated, and no cervical lymphadenopathy. Supple, full range of motion without nuchal rigidity, or vertebral point tenderness. No Meningismus. Cardiovascular: Regular rate and rhythm with a normal S1 and S2. No gallops, murmurs, or rubs. Normal PMI, no JVD. No pulse deficits. Respiratory: Lungs have equal breath sounds bilaterally, clear to auscultation and percussion. No rales, rhonchi or wheezes noted. No increased work of breathing, no retractions or nasal flaring. Abdomen/GI: Soft, non-tender, with normal bowel sounds. No distension or tympany. No guarding or rebound. Skin: Warm, dry with normal turgor. Normal color with no rashes, no lesions, and no evidence of cellulitis. MS/ Extremity: Pulses equal, no cyanosis. Neurovascular intact. Full, normal range of motion. 12:46 Neuro: Orientation: Not oriented to person, place, time, situation, Mentation: able to follow commands, slow to respond, confused, Memory: unable to test, Cranial nerves: CN I not tested, CN II- XII are normal as tested, extraocular movements are intact, Speech is dysarthric, slowed, slurred, Tongue strength is normal, Motor: moves all fours, Sensation: no obvious gross deficits, seizure activity, grand mal type is displayed. Vital Signs: 12:45 BP 143 / 82; Pulse 102; Resp 18; Temp 98.9(O); Pulse Ox 100% on R/A; Pain 0/10; ks7 13:06 BP 123 / 79; Pulse 102; Resp 16; Temp 98.9(O); Pulse Ox 100% on R/A; Pain 0/10; ks7 14:30 BP 143 / 80; Pulse 93; Resp 18; Pulse Ox 98% ; dh4 15:00 BP 136 / 83; Pulse 94; Resp 16; Temp 98(TE); Pulse Ox 100% on R/A; Pain 0/10; ks7 15:45 BP 134 / 72; Pulse 90; Resp 16; Pulse Ox 99% on R/A; Pain 0/10; ks7 16:05 BP 134 / 72; Pulse 93; Resp 18; Temp 97.9(TE); Pulse Ox 98% on R/A; Pain 0/10; ks7 16:09 Pulse Ox 99% on R/A; Pain 0/10; ks7 16:30 BP 116 / 81; Pulse 86; Resp 16; Temp 97.9(TE); Pulse Ox 98% on R/A; Pain 0/10; ks7 17:15 BP 125 / 78; Pulse 86; Resp 16; Temp 97.9(O); Pulse Ox 100% on R/A; Pain 0/10; ks7 18:19 Pulse Ox 100% ; Pain 0/10; ks7 18:26 BP 114 / 79; Pulse 89; Resp 16; Temp 97.9(TE); Pulse Ox 99% on R/A; Pain 0/10; ks7 NIH Stroke Scale Scores: 12:40 NIHSS Score: 14 ks7 12:40 NIHSS Score: 1 ks7 12:46 NIHSS Score: 8 jr8 MDM: 12:29 Patient medically screened. 8 14:33 Data reviewed: vital signs, nurses notes, lab test result(s), EKG, radiologic studies, jr8 CT scan, MRI. Data interpreted: Pulse oximetry: on room air is 98 %. Interpretation: normal. Counseling: I had a detailed discussion with the patient and/or guardian regarding: the historical points, exam findings, and any diagnostic results supporting the discharge/admit diagnosis, lab results, radiology results, the need for further work-up and treatment in the hospital. Physician consultation: Omar Aguiar MD was called at 14:35, was contacted at 14:35, regarding consult, and will see patient in inpatient room. ED course: Frankie PATEL called and will accept patient for hospitalization . 10/15 12:29 Order name: Basic Metabolic Panel; Complete Time: 13:23 10/15 12:29 Order name: CBC with Diff; Complete Time: 13:03 10/15 12:29 Order name: LFT's; Complete Time: 13:23 10/15 12:29 Order name: Magnesium; Complete Time: 13:23 10/15 12:29 Order name: NT PRO-BNP; Complete Time: 13:10/15 12:29 Order name: PT-INR; Complete Time: 13:23 10/15 12:29 Order name: Troponin (emerg Dept Use Only); Complete Time: 13:23 10/15 12:30 Order name: CT Stroke Brain w/o Contrast; Complete Time: 12:45 10/15 12:44 Order name: MRI - Brain Wo Cont; Complete Time: 14:20 10/15 12:49 Order name: Glucose, Ancillary Testing; Complete Time: 13:03 EDMS 10/15 14:30 Order name: Urine Microscopic Only; Complete Time: 16:56 10/15 15:28 Order name: Urine Dipstick--Ancillary (enter results) hb 10/15 16:32 Order name: Urine Dipstick-Ancillary; Complete Time: 16:42 EDMS 10/15 12:29 Order name: EKG; Complete Time: 12:30 10/15 12:29 Order name: Cardiac monitoring; Complete Time: 12:58 10/15 12:29 Order name: EKG - Nurse/Tech; Complete Time: 12:58 10/15 12:29 Order name: IV Saline Lock; Complete Time: 12:57 10/15 12:29 Order name: Labs collected and sent; Complete Time: 12:10/15 12:29 Order name: O2 Per Protocol; Complete Time: 12:57 10/15 12:29 Order name: O2 Sat Monitoring; Complete Time: 12:57 10/15 12:29 Order name: Glucose Level; Complete Time: 12:56 10/15 14:30 Order name: Urine Dipstick-Ancillary (obtain specimen); Complete Time: 16:09 Administered Medications: 13:03 Drug: Keppra 1000 mg Route: IV; Rate: calculated rate; Site: right forearm; ks7 16:09 Follow up: Pulse Ox 99% RA; Pain 0/10 Adult ks7 18:15 Drug: Rocephin 1 grams Route: IV; Rate: calculated rate; Site: right forearm; ks7 18:19 Follow up: Pulse Ox 100% ; Pain 0/10 Adult ks7 Disposition: 10/16 07:17 Co-signature as Attending Physician, Christiano Fajardo MD I agree with the assessment and kdr plan of care. Disposition: 10/16/19 14:37 Hospitalization ordered by Ge Richard for Inpatient Admission. Preliminary diagnosis are Seizures, Altered mental status, unspecified, Eduard's paralysis (postepileptic). - Bed requested for Telemetry/MedSurg (Inpatient). - Status is Inpatient Admission. ks7 - Condition is Stable. - Problem is new. - Symptoms have improved. NIH Stroke Scale - NIH Stroke Score Date: 10/16/2019 Time: 12:40 Total Score = 14 1a. Level of Consciousness (LOC) - 2(Not Alert, obtunded) 1b. Level of Consciousness (LOC) (Year \T\ Age) - 2(Neither) 1c. LOC Commands (Open \T\ Closes Eyes/Chemist Steroids) - 2(Neither) 2. Best Gaze (Lateral Gaze Paresis) - 1(Partial gaze palsy) 3. Visual Field Loss - 0(No visual loss) 4. Facial Palsy - 2(Partial paralysis) 5a. Left Arm: Motor (10-second hold) - 0(No drift) 5b. Right Arm: Motor (10-second hold) - 0(No drift) 6a. Left Leg: Motor (5-second hold - always test supine) - 0(No drift) 6b. Right Leg: Motor (5-second hold - always test supine) - 0(No drift) 7. Limb Ataxia (finger/nose \T\ heel/weber - test with eyes open) - 0(Absent) 8. Sensory Loss (pinprick arms/legs/face) - 0(Normal) 9. Best Language: Aphasia (description/naming/reading) - 3(Mute, global aphasia) 10. Dysarthria (speech clarity - read or repeat words) - 2(Severe) 11. Extinction and Inattention (visual/tactile/auditory/spatial/personal) - 0(No abnormality) Initials: ks7 NIH Stroke Scale - NIH Stroke Score Date: 10/16/2019 Time: 12:40 Total Score = 1 1a. Level of Consciousness (LOC) - 0(Alert) 1b. Level of Consciousness (LOC) (Year \T\ Age) - 0(Both) 1c. LOC Commands (Open \T\ Closes Eyes/Chemist Steroids) - 0(Both) 2. Best Gaze (Lateral Gaze Paresis) - 0(Normal) 3. Visual Field Loss - 0(No visual loss) 4. Facial Palsy - 1(Minor Paralysis) 5a. Left Arm: Motor (10-second hold) - 0(No drift) 5b. Right Arm: Motor (10-second hold) - 0(No drift) 6a. Left Leg: Motor (5-second hold - always test supine) - 0(No drift) 6b. Right Leg: Motor (5-second hold - always test supine) - 0(No drift) 7. Limb Ataxia (finger/nose \T\ heel/weber - test with eyes open) - 0(Absent) 8. Sensory Loss (pinprick arms/legs/face) - 0(Normal) 9. Best Language: Aphasia (description/naming/reading) - 0(No aphasia) 10. Dysarthria (speech clarity - read or repeat words) - 0(Normal) 11. Extinction and Inattention (visual/tactile/auditory/spatial/personal) - 0(No abnormality) Initials: ks7 NIH Stroke Scale - NIH Stroke Score Date: 10/16/2019 Time: 12:46 Total Score = 8 1a. Level of Consciousness (LOC) - 1(Not Alert) 1b. Level of Consciousness (LOC) (Year \T\ Age) - 2(Neither) 1c. LOC Commands (Open \T\ Closes Eyes/Chemist Steroids) - 0(Both) 2. Best Gaze (Lateral Gaze Paresis) - 0(Normal) 3. Visual Field Loss - 0(No visual loss) 4. Facial Palsy - 1(Minor Paralysis) 5a. Left Arm: Motor (10-second hold) - 0(No drift) 5b. Right Arm: Motor (10-second hold) - 0(No drift) 6a. Left Leg: Motor (5-second hold - always test supine) - 0(No drift) 6b. Right Leg: Motor (5-second hold - always test supine) - 0(No drift) 7. Limb Ataxia (finger/nose \T\ heel/weber - test with eyes open) - 0(Absent) 8. Sensory Loss (pinprick arms/legs/face) - 0(Normal) 9. Best Language: Aphasia (description/naming/reading) - 2(Severe aphasia) 10. Dysarthria (speech clarity - read or repeat words) - 2(Severe) 11. Extinction and Inattention (visual/tactile/auditory/spatial/personal) - 0(No abnormality) Initials: jr8 Signatures: Dispatcher [employer] EDMS Christiano Fajardo MD MD [facility] Elli Baer RN RN Boris Calixto PA PA jr8 Frankie Olsen, WINDSHIELD REPAIR TECHNICIAN-C WINDSHIELD REPAIR TECHNICIAN-Cla1 Anjelica Benjamin Amy, RN RN Marylou Roberto RN RN ks7 Corrections: (The following items were deleted from the chart) 10/15 15:42 14:37 Hospitalization Ordered by Ge Richard MD for Inpatient Admission. eb Preliminary diagnosis is Seizures; Altered mental status, unspecified; Eduard's paralysis (postepileptic). Bed requested for Telemetry/MedSurg (Inpatient). Status is Inpatient Admission. Condition is Stable. Problem is new. Symptoms have improved. jr8 18:34 15:42 10/16/2019 14:37 Hospitalization Ordered by Ge Richard MD for ks7 Inpatient Admission. Preliminary diagnosis is Seizures; Altered mental status, unspecified; Eduard's paralysis (postepileptic). Bed requested for Telemetry/MedSurg (Inpatient). Status is Inpatient Admission. Condition is Stable. Problem is new. Symptoms have improved. eb
--- NOTE | 2019-10-16 15:21 | P.HP ---
Certification for Inpatient Patient admitted to: Observation With expected LOS: <2 Midnights Patient will require the following post-hospital care: None Practitioner: I am a practitioner with admitting privileges, knowledge of patient current condition, hospital course, and medical plan of care. Services: Services provided to patient in accordance with Admission requirements found in Title 42 Section 412.3 of the Code of Federal Regulations <Frankie Olsen - Last Filed: 10/16/19 15:15> Patient History Date of Service: 10/16/19 Reason for admission: New onset seizures History of Present Illness: 64-year-old female with history of diabetes mellitus insulin- dependent and hypertension presents the emergency department for new onset seizures. Patient was out walking with her son when she was noted to seemed Foggy and then lost consciousness. Son brought her an POV to the emergency department, at presentation patient was seizing and after seizure stopped and she was having left-sided facial droop. Dance Hall Host/Hostess equal and strong. Could stroke was called and patient had emergent CT scan without contrast. CT was negative, MRI without contrast was obtained emergently as well. This was also negative. After patient's postictal period the left-sided facial droop resolved. Patient denies any history of seizures. Son states that the patient is doing complaining of unilateral left-sided headaches increasing in frequency over the course of the last week or 2. Son also reports that she was seen approximately 1 week ago in the emergency department for Memory problems. Patient does report that she has a family history of dementia and Alzheimer's. ED provider wishes to admit patient for further evaluation and management. When I saw the patient in the emergency room she was a little bit drowsy although she did receive 1 mg of Ativan IV for seizure-like activity in the emergency department. Patient is oriented x3. Patient be admitted for further evaluation and management. Do not suspect meningitis at this time, patient does not report headache, no fever noted, no nuchal rigidity, Brudzinski and Kernig sign negative. - Past Medical/Surgical History Diabetic: Yes -: DM -: HTN -: fibromyalgia -: mitral valve prolapse -: hysterectomy -: tonsillectomy -: tubal ligation - Family History Mother -: Heart disease, Hypertension, Diabetes, Stroke Sister -: Hypertension, Diabetes Brother -: Diabetes - Social History Alcohol use: No CD- Drugs: No Caffeine use: Yes Place of Residence: Home <Frankie Olsen - Last Filed: 10/16/19 15:15> Date of Service: 10/17/19 <Lalit Richard - Last Filed: 10/17/19 13:03> Allergies codeine Allergy (Verified 04/18/14 19:29) confusion Home Medications: Citalopram [Celexa*] 20 mg PO DAILY 04/18/14 Cyclobenzaprine HCl 10 mg PO BEDTIME 04/18/14 Ergocalciferol (Vitamin D2) [Drisdol] 2,000 units PO DAILY 04/18/14 Folic Acid 1 mg PO DAILY 04/18/14 Insulin Glargine Human [Lantus*] 20 units SQ BEDTIME 04/18/14 Lisinopril/Hydrochlorothiazide [Zestoretic 20-25 mg Tablet] 1 tab PO DAILY 04/18/14 Metoprolol Tartrate [Lopressor*] 100 mg PO BID 04/18/14 Cefuroxime [Ceftin] 500 mg PO BID #14 tab 10/17/19 Insulin Detemir [Levemir] 30 units SQ BEDTIME 10/17/19 Lisinopril [Zestril] 1 tab PO DAILY 10/17/19 levETIRAcetam [Keppra*] 500 mg PO BID #60 tab 10/17/19 Review of Systems 10-point ROS is otherwise unremarkable <Frankie Olsen - Last Filed: 10/16/19 15:15> Physical Examination - Physical Exam General: Alert, In no apparent distress, Oriented x3 HEENT: Atraumatic, Normocephalic, PERRLA, Mucous membr. moist/pink Neck: Supple, No Thyromegaly Respiratory: Clear to auscultation bilaterally, Normal air movement Cardiovascular: No edema, Normal S1 S2 Capillary refill: <2 Seconds Gastrointestinal: Normal bowel sounds, Soft and benign Musculoskeletal: No contractures, No erythema, No tenderness Integumentary: No breakdown, No significant lesion Neurological: Normal speech, Normal strength at 5/5 x4 extr, Normal tone, Sensation intact - Studies Laboratory Data (last 24 hrs) 10/16/19 12:37: PT 12.1, INR 1.03 10/16/19 12:37: WBC 10.8 D, Hgb 14.4, Hct 43.8, Plt Count 311 D 10/16/19 12:37: Sodium 134 L, Potassium 3.6, BUN 25 H, Creatinine 1.03, Glucose 235 H, Magnesium 2.2, Total Bilirubin 0.5, AST 15, ALT 30, Alkaline Phosphatase 105 <Frankie Olsen - Last Filed: 10/16/19 15:15> - Studies Laboratory Data (last 24 hrs) 10/16/19 12:37: PT 12.1, INR 1.03 10/16/19 12:37: Sodium 134 L, Potassium 3.6, BUN 25 H, Creatinine 1.03, Glucose 235 H, Magnesium 2.2, Total Bilirubin 0.5, AST 15, ALT 30, Alkaline Phosphatase 105 <Lalit Richard - Last Filed: 10/17/19 13:03> Assessment and Plan - Plan Assessment New onset seizures Diabetes mellitus type 2-insulin dependent Hypertension Plan New onset seizures: Neurology consult in place. Patient given loading dose of Keppra in the emergency department. Seizure precautions in place, will continue with Keppra 1000 mg IV b.i.d. at this time. Ativan p.r.n. in place for seizure activity. CT and MRI were negative, will order EEG. Appreciate further input from neurology. DVT prophylaxis with Lovenox 40 mg subcutaneous once daily. Will also check thyroid panel. Diabetes mellitus type 2-insulin dependent: Have continued with patient's Lantus but decreased dose to 10 units daily. Also continue a.c. HS Accu-Cheks and sliding scale insulin therapy. Will also check A1c level. Hypertension: Half continue patient's home medications. Discharge Plan: Home Plan to discharge in: 24 Hours - Advance Directives Does patient have a Living Will: No Does patient have a Durable POA for Healthcare: No - Code Status/Comfort Care Code Status Assessed: Yes Time Spent Managing Pts Care (In Minutes): 55 <Frankie Olsen - Last Filed: 10/16/19 15:15> Physician Review: Patient Assessed, Agree with Above Assessment and Plan Physician Review Additional Text: The patient was seen and examined on 10/16/19 Agree with the assessment and plan as documented by the BJ <Lalit Richard - Last Filed: 10/17/19 13:03>
[2019-10-16 16:32] LABS: Urine Blood NEGATIVE (NEG); Urine Glucose NEGATIVE (NEG); Urine Protein TRACE (NEG); Urine pH 5.5 (5.0-7.0)
[2019-10-16 16:53] LABS: Urine Bacteria 20-50 /HPF (<20); Urine Culture Reflex Order REFLEXED; Urine RBC <5 /HPF (NONE SEEN)
[2019-10-16] MEDS ORDERED: ONDANSETRON 4 MG/2 ML VIAL IV PRN (18:15)
[2019-10-16] MEDS ORDERED: LORazepam 2 MG/ML VIAL IV PRN (18:15)
[2019-10-16] MEDS: INSULIN -REGULAR HUMAN 50 UNIT/0.5 ML ML SQ SCH ×2 (18:15→20:44)
[2019-10-16] MEDS ORDERED: ACETAMINOPHEN 500 MG TAB PO PRN (18:15)
[2019-10-16] MEDS ORDERED: D50W 25 GM/50 ML SYRINGE/VIAL IV PRN (18:15)
[2019-10-16] MEDS ORDERED: GLUCAGON 1 MG/VIAL IM PRN (18:15)
[2019-10-16] MEDS ORDERED: CEFTRIAXONE/SWI 1gm 1 GM/10 ML SYR ONE (18:20)
[2019-10-16] MEDS: NA CHLORIDE 0.9% 1,000 ML IV SCH (18:47)
[2019-10-16 18:55] VITALS: O2SAT 99
[2019-10-16 19:59] VITALS: BMI 36.7
[2019-10-16] MEDS: levETIRAcetam 500 MG TAB PO SCH (20:43)
[2019-10-16] MEDS: ENOXAPARIN 40 MG/0.4 ML SQ SCH (20:43)
[2019-10-16] MEDS ORDERED: INSULIN GLARGINE 100 UNITS/ML SQ SCH (21:00)
--- NOTE | 2019-10-16 21:39 | CON ---
Reason For Consultation: Consultation called because of seizures. History Of Present Illness: Ms. Bailon is a 64-year-old patient with poor medication compliance while having diabetes mellitus, recent urinary tract infection on ciprofloxacin, who come s in after seizures. The patient said earlier this week she was reportedly on the toilet when she fe ll off the toilet and had no memory as to why she fell off the toilet, but she apparently did not see k medical attention at that time. However, earlier today, she was out walking with her son when she became "foggy" and then lost consciousness. She was brought to [facility] where she was fou nd to be in seizures. She was treated acutely with Keppra 1000 mg IV and Ativan with cessation of he r seizures. She had a head CT scan that was negative. Also, brain MRI done without contrast showed no acute ischemic or hemorrhagic changes. Post seizure, she had right-sided facial drooping. Follow ing the seizure, she did have left-sided headache and noted that in the 2 weeks prior to her current seizure onset, she also had right-sided headaches and episodes of memory loss or spacing out. She do es have a family history of seizures in a maternal cousin. While the patient was evaluated, she had no evidence of an ongoing systemic infection. Negative Oliver ig's or Brudzinski's. She did not have any fevers, chills, rigors in terms of her examination. Past Medical History: Diabetes mellitus, hypertension, fibromyalgia, mitral valve prolapse. Past Surgical History: Hysterectomy, tonsillectomy, tubal ligation. Allergies: CODEINE. Medications: At home, ciprofloxacin 500 mg twice daily, Celexa 20 mg daily, cyclobenzaprine 10 mg at bedtime, vitamin D2 2000 units daily, folic acid 1 mg daily, Lantus insulin 20 units at bedtime, Zes toretic 20/25 tablet 1 daily, Lopressor 100 mg twice daily. Family History: Again, seizure in maternal cousin. Mother with heart disease, hypertension, diabete s, and stroke; sister with hypertension and diabetes; and brother with diabetes. Social History: Does drink caffeinated beverages, but denies alcohol, tobacco, or IV drug use. Renny es any new supplements, any blows to the head with loss of consciousness. Review of Systems: Aside from mentioned above, she denies any fevers, chills, nausea, vomiting, myalgias, arthralgias, r anthony, psychiatric complaints. No other positives. Physical Examination: Vital Signs: Blood pressure 125/78, pulse 86, respiratory rate 16, temperature 97.9, oxygen saturati on 100%. General: Ms. Bailon is resting in the bed in the emergency room. She is in no acute distress. HEENT: She is normocephalic, atraumatic. Sclerae are anicteric. Oropharynx is pink and moist. Neck: Supple. Chest: Clear. Heart: Regular. Extremities: No edema, cyanosis, or clubbing. Neurologic: She is alert and oriented to person, place, situation, not to the exact date and day of the week, but she did know the year, the month, and place in city. She followed all commands appropr iately. On cranial nerve examination, she has no focal deficits on 2 through 12. On motor examinati on, she has no focal deficits in the arms and legs with 5/5 strength proximally and distally. Sensor y exam shows a stocking-glove loss to light touch and temperature. Reflexes depressed in the upper a nd lower extremities. Coordination intact in the upper and lower extremities. Gait, she would like to be ambulated later with physical therapy. Laboratory Studies: Complete blood count with differential now is normal with white blood cell count 10.8, earlier in the day was 13.5; neutrophils are 66.3 now, earlier slightly elevated. Coagulation panel was normal. Her basic metabolic panel is remarkable for glucose that range up to 266. Liver function studies are normal. Urinalysis shows 20-50 bacteria, 5-10 white blood cells, negative cortez ase, negative nitrite, trace protein. Assessment: Ms. Bailon is a 64-year-old patient with apparent seizures at least for a few weeks. She does not have an obvious reason for seizures. She has hypertension, diabetes mellitus, and poor com pliance with medications. Brain MRI is unremarkable. CT scan of the head again unremarkable. She i s treated with ciprofloxacin apparently for urinary tract infection, although the patient does say sh gustavo apparently had a sinus infection affecting her left head and was given ciprofloxacin at [facility] earlier this week. Plan: 1.Continue with Keppra 500 mg twice daily. 2.EEG when possible. 3.Compliance with medications was stressed. 4.The patient may be discharged once she is observed for at least 24 hours and follow up with Dr[facility] by calling next week for an appointment within 1 month. [facility]-EEG monitoring study to help characterize possible seizures. ANNIE Voice ID: [id number] Report ID: [id number]
[2019-10-17 05:45] LABS: Absolute Lymphocytes (CBC) 3.2 K/uL (0.7-4.9); Basophils % 0.9 % (0-1.3); Hematocrit 38.3 % (36.0-45.0); Lymphocytes % 36.6 % (15.3-44.8); MPV 8.8 fL (7.6-11.3); RBC Red Blood Cell Count 4.82 M/uL (3.86-4.86)
[2019-10-17 06:10] LABS: ALT/SGPT 24 U/L (12-78); AST/SGOT 14 U/L (15-37); Albumin 2.9 g/dL (3.4-5.0); Alkaline Phosphatase 90 U/L (45-117); BUN Blood Urea Nitrogen 17 mg/dL (7-18); Bicarbonate 25 mmol/L (21-32); Bilirubin Total 0.4 mg/dL (0.2-1.0); Glucose Level 119 mg/dL (74-106); Magnesium 2.1 mg/dL (1.8-2.4); Potassium 3.4 mmol/L (3.5-5.1); Protein, Total 7.3 g/dL (6.4-8.2); Sodium Level 139 mmol/L (136-145)
[2019-10-17] MEDS: NA CHLORIDE 0.9% 1,000 ML IV SCH (07:04)
[2019-10-17] MEDS: INSULIN -REGULAR HUMAN 50 UNIT/0.5 ML ML SQ SCH ×2 (07:30→12:06)
--- NOTE | 2019-10-17 07:30 | EKG ---
Test Date: 2019-10-16 Test Time: 12:43:33 Demand Generation Manager: GABRIEL MEASUREMENT RESULTS: Intervals: Rate: 112 DC: 136 QRSD: 72 QT: 344 QTc: 469 Morton: P: 56 DC: 136 QRS: 18 T: 52 INTERPRETIVE STATEMENTS: Sinus tachycardia Otherwise normal ECG Compared to ECG 10/10/2019 01:22:53 Sinus rhythm no longer present Electronically Signed On 10-17-19 07:29:00 CDT by Lenny Armenta
[2019-10-17] MEDS ORDERED: lisinopriL 20 MG TAB PO SCH (09:00)
[2019-10-17] MEDS ORDERED: FOLIC ACID 1 MG TABLET PO SCH (09:00)
[2019-10-17] MEDS ORDERED: AMLODIPINE 2.5 MG TAB PO SCH (09:00)
[2019-10-17] MEDS ORDERED: POTASSIUM 25 MEQ EFFERV TAB PO ONE (09:00)
[2019-10-17] MEDS ORDERED: CEFTRIAXONE/SWI 1gm 1 GM/10 ML SYR IVP SCH (09:00)
[2019-10-17] MEDS: levETIRAcetam 500 MG TAB PO SCH (09:27)
[2019-10-17] MEDS: ENOXAPARIN 40 MG/0.4 ML SQ SCH (09:30)
--- NOTE | 2019-10-17 10:52 | P.DS ---
Admission Date: 10/16/19 Discharge Date: 10/17/19 Disposition: ROUTINE DISCHARGE Discharge Condition: GOOD Reason for Admission: New onset seizures Brief History of Present Illness: 64-year-old female with history of diabetes mellitus insulin- dependent and hypertension presents the emergency department for new onset seizures. Patient was out walking with her son when she was noted to seemed Foggy and then lost consciousness. Son brought her an POV to the emergency department, at presentation patient was seizing and after seizure stopped and she was having left-sided facial droop. Mutual Fund Accountant equal and strong. Could stroke was called and patient had emergent CT scan without contrast. CT was negative, MRI without contrast was obtained emergently as well. This was also negative. After patient's postictal period the left-sided facial droop resolved. Patient denies any history of seizures. Son states that the patient is doing complaining of unilateral left-sided headaches increasing in frequency over the course of the last week or 2. Son also reports that she was seen approximately 1 week ago in the emergency department for Memory problems. Patient does report that she has a family history of dementia and Alzheimer's. ED provider wishes to admit patient for further evaluation and management. When I saw the patient in the emergency room she was a little bit drowsy although she did receive 1 mg of Ativan IV for seizure-like activity in the emergency department. Patient is oriented x3. Patient be admitted for further evaluation and management. Do not suspect meningitis at this time, patient does not report headache, no fever noted, no nuchal rigidity, Brudzinski and Kernig sign negative. Hospital Course: New onset seizures: Diabetes mellitus type 2-insulin dependent: Hypertension: She was admitted and was monitor closely under telemetry. She had a CT and MRI of the brain which was negative for any acute changes. Patient was started on Keppra. Neurology was consulted. Neurology recommended conservative management with outpatient follow up and outpatient EEG monitoring. Patient wanted go home and is being discharged home today in a stable condition with advice to follow up with PCP in 1 week and also with Neurology in 1-2 weeks. Patient was advised against driving or using any machinery Vital Signs/Physical Exam: Temp Pulse Resp BP Pulse Ox 97.5 F 84 18 135/60 95 10/17/19 08:00 10/17/19 09:25 10/17/19 08:00 10/17/19 09:25 10/17/19 08:00 General: Alert, In no apparent distress HEENT: Atraumatic, Normocephalic Neck: Supple Respiratory: Clear to auscultation bilaterally Cardiovascular: Normal pulses, Regular rate/rhythm Capillary refill: <2 Seconds Gastrointestinal: Soft and benign, W/out hepatosplenomegaly Integumentary: No rashes Neurological: Normal speech, Normal strength at 5/5 x4 extr Laboratory Data at Discharge: WBC 8.7 K/uL (4.3-10.9) D 10/17/19 05:15 Hgb 12.9 g/dL (12.0-15.0) 10/17/19 05:15 Hct 38.3 % (36.0-45.0) 10/17/19 05:15 Plt Count 269 K/uL (152-406) 10/17/19 05:15 PT 12.1 SECONDS (9.5-12.5) 10/16/19 12:37 INR 1.03 10/16/19 12:37 Sodium 139 mmol/L (136-145) 10/17/19 05:15 Potassium 3.4 mmol/L (3.5-5.1) L 10/17/19 05:15 BUN 17 mg/dL (7-18) 10/17/19 05:15 Creatinine 0.65 mg/dL (0.55-1.3) 10/17/19 05:15 Glucose 119 mg/dL (74-106) H 10/17/19 05:15 Magnesium 2.1 mg/dL (1.8-2.4) 10/17/19 05:15 Total Bilirubin 0.4 mg/dL (0.2-1.0) 10/17/19 05:15 AST 14 U/L (15-37) L 10/17/19 05:15 ALT 24 U/L (12-78) 10/17/19 05:15 Alkaline Phosphatase 90 U/L (45-117) 10/17/19 05:15 Home Medications: Citalopram [Celexa*] 20 mg PO DAILY 04/18/14 Cyclobenzaprine HCl 10 mg PO BEDTIME 04/18/14 Ergocalciferol (Vitamin D2) [Drisdol] 2,000 units PO DAILY 04/18/14 Folic Acid 1 mg PO DAILY 04/18/14 Insulin Glargine Human [Lantus*] 20 units SQ BEDTIME 04/18/14 Lisinopril/Hydrochlorothiazide [Zestoretic 20-25 mg Tablet] 1 tab PO DAILY 04/18/14 Metoprolol Tartrate [Lopressor*] 100 mg PO BID 04/18/14 Cefuroxime [Ceftin] 500 mg PO BID #14 tab 10/17/19 Insulin Detemir [Levemir] 30 units SQ BEDTIME 10/17/19 Lisinopril [Zestril] 1 tab PO DAILY 10/17/19 levETIRAcetam [Keppra*] 500 mg PO BID #60 tab 10/17/19 New Medications: Cefuroxime [Ceftin] 500 mg PO BID #14 tab levETIRAcetam [Keppra*] 500 mg PO BID #60 tab Followup: Omar Aguiar MD [ASSOCIATE-ACTIVE - CAN ADMIT] - Time spent managing pt's care (in minutes): 42
[2019-10-17 14:49] VITALS: BP 116/56; TEMP 97.6
== END 2019-10-17 13:28 | disposition home or self-care (01) ==
LOC: ER 12:23 → ERHOLD 15:05 → 2ND 18:09
PROVIDERS: ADMIT Family Medicine; ATTEND Family Medicine
DX: R56.9 Unspecified convulsions (principal); G83.84 Todd's paralysis (postepileptic); E11.9 Type 2 diabetes mellitus without complications; R00.1 Bradycardia, unspecified; I10 Essential (primary) hypertension; Z79.4 Long term (current) use of insulin; Z79.899 Other long term (current) drug therapy; M79.7 Fibromyalgia; I34.1 Nonrheumatic mitral (valve) prolapse; Z11.59 Encounter for screening for other viral diseases
CPT/HCPCS: 93005; 87040 ×2; 87088; 85025 ×2; 87086; 80048; 36415; 83735 ×2; 85610; 82947 ×4; 80076; 84443; 83036; 84484; 84439; 80053; 83880; 70450; 70551; 96375; 96374; 99291; 99292; U0002; J1650 ×2; J1815; J1953; J0696 ×2; J7030 ×2; G0378 ×3; 81003; 81015

== ENCOUNTER 2019-10-17 21:40 | Emergency (ER) | payer OTHER ==
--- OUTSIDE RECORDS SUMMARY | 2019-10-17 21:43 | XMS REPORT | Continuity of Care Document ---
:1955 Author Organization [facility] t Address [address] [place] [address] Care Team Providers Name Role Phone Catherine [...] Facility Department ID 2019-10-09 2019-10-09 Telephone [facility]WILFR[facility] [id number] 00:00:00 00:00:00 [facility] [id number] [place] [id number] Professio [phone] [address]al [phone] 2019-10-07 2019-10-07 Urgent Provider, [facility] [id number] 11:06:10 11:26:10 Care [facility] [id number] Care [place] [id number] Professio [phone] [phone] Results This patient has no known results.
[2019-10-17 22:36] LABS: Absolute Lymphocytes (CBC) 2.4 K/uL (0.7-4.9); Basophils % 0.7 % (0-1.3); Hematocrit 40.4 % (36.0-45.0); Lymphocytes % 35.8 % (15.3-44.8); MPV 8.8 fL (7.6-11.3); RBC Red Blood Cell Count 5.01 M/uL (3.86-4.86)
[2019-10-17 22:50] LABS: Protime INR 1.02
[2019-10-17 22:59] LABS: ALT/SGPT 29 U/L (12-78); AST/SGOT 21 U/L (15-37); Albumin 2.9 g/dL (3.4-5.0); Alkaline Phosphatase 102 U/L (45-117); BUN Blood Urea Nitrogen 18 mg/dL (7-18); Bicarbonate 25 mmol/L (21-32); Bilirubin Direct < 0.1 mg/dL (0-0.2); Bilirubin Total 0.2 mg/dL (0.2-1.0); Glucose Level 218 mg/dL (74-106); Potassium 4.2 mmol/L (3.5-5.1); Protein, Total 7.5 g/dL (6.4-8.2); Sodium Level 137 mmol/L (136-145)
[2019-10-17] MEDS ORDERED: LEVETIRACETAM 500 MG/5 ML VIAL IV ONE (22:59)
[2019-10-17] MEDS ORDERED: NA CHLORIDE 0.9% 100 ML IV ONE (23:00)
--- NOTE | 2019-10-17 23:49 | ER ---
Nurse's Notes [facility] Name: Giovanna Bailon Age: 64 yrs Sex: Female : 1955 Arrival Date: 10/17/2019 Time: 21:43 Bed 3 Private MD: Diagnosis: Epilepsy, unspecified, not intractable Presentation: 10/16 21:45 Chief complaint: EMS states: "The family is reporting that the pt may have had an jd3 unwitnessed seizure. she was admitted here recently for similar symptoms. the pt was post ictal when I first got there.". Coronavirus screen: Proceed with normal triage. Ebola Screen: Patient negative for fever greater than or equal to 101.5 degrees Fahrenheit, and additional compatible Ebola Virus Disease symptoms. Initial Sepsis Screen: Does the patient meet any 2 criteria? No. Patient's initial sepsis screen is negative. Does the patient have a suspected source of infection? No. Patient's initial sepsis screen is negative. Risk Assessment: Do you want to hurt yourself or someone else? Patient reports no desire to harm self or others. Onset of symptoms was October 17, 2019. 21:45 Method Of Arrival: Ambulatory jd3 21:45 Acuity: SATYA 3 jd3 Historical: - Allergies: 21:45 Codeine; jd3 - Home Meds: 21:45 levetiracetam oral oral [Active]; cefuroxime axetil Oral [Active]; jd3 - PMHx: 21:45 Diabetes - IDDM; Fibromyalgia; Hypertension; jd3 - PSHx: 21:45 Tubal ligation; Hysterectomy; Tonsillectomy; Adenoids; jd3 - Immunization history:: Adult Immunizations up to date. - Social history:: Smoking status: unknown. Screenin:58 Abuse screen: Denies threats or abuse. Denies injuries from another. Nutritional mg2 screening: No deficits noted. Tuberculosis screening: No symptoms or risk factors identified. Fall Risk IV access (20 points). Assessment: 10/15 22:50 Reassessment: Patient appears in no apparent distress at this time. Patient and/or mg2 family updated on plan of care and expected duration. Pain level reassessed. Patient is alert, oriented x 3, equal unlabored respirations, skin warm/dry/pink. 10/16 21:57 General: Appears in no apparent distress. comfortable, Behavior is calm, cooperative. mg2 Pain: Denies pain. Neuro: Level of Consciousness is awake, alert, Oriented to person, place. Cardiovascular: Capillary refill < 3 seconds Patient's skin is warm and dry. Respiratory: Airway is patent Respiratory effort is even, unlabored, Respiratory pattern is regular, symmetrical. GI: No signs and/or symptoms were reported involving the gastrointestinal system. : No signs and/or symptoms were reported regarding the genitourinary system. EENT: No signs and/or symptoms were reported regarding the EENT system. Derm: Skin is intact, is healthy with good turgor, Skin is pink, warm \\T\\ dry. normal. Musculoskeletal: Circulation, motion, and sensation intact. Capillary refill < 3 seconds. 22:30 Reassessment: Patient and/or family updated on plan of care and expected duration. Pain ea level reassessed. Patient is alert, oriented x 3, equal unlabored respirations, skin warm/dry/pink. 23:50 Reassessment: Patient and/or family updated on plan of care and expected duration. Pain ea level reassessed. Patient is alert, oriented x 3, equal unlabored respirations, skin warm/dry/pink. 10/17 00:17 Reassessment: Patient and/or family updated on plan of care and expected duration. Pain ea level reassessed. Patient is alert, oriented x 3, equal unlabored respirations, skin warm/dry/pink. Discharge instruction given to patient, verbalized the understanding of instruction. Vital Signs: 10/16 21:43 BP 162 / 87; Pulse 97; Resp 17 S; Temp 98.4(O); Pulse Ox 99% on R/A; Weight 88 kg (R); jd3 Height 5 ft. 0 in. (152.40 cm) (R); Pain 0/10; 23:50 BP 148 / 80; Pulse 89; Resp 18; Pulse Ox 100% on R/A; mg2 10/17 00:18 BP 140 / 78; Pulse 80; Resp 18; Temp 98.2; Pulse Ox 98% ; ea 10/16 21:43 Body Mass Index 37.89 (88.00 kg, 152.40 cm) jd3 ED Course: 10/16 21:43 Patient arrived in ED. jd3 21:43 Arm band placed on. jd3 21:48 Triage completed. jd3 21:57 Gutierrez Tuttle, RN is Primary Nurse. mg2 21:58 Patient has correct armband on for positive identification. cafeteria monitor on. Pulse mg2 ox on. NIBP on. Door closed. Warm blanket given. 21:59 No provider procedures requiring assistance completed. Inserted saline lock: 20 gauge mg2 in right forearm, using aseptic technique. Blood collected. 21:59 Maintain EMS IV. Dressing intact. Site clean \\T\\ dry. Gauge \\T\\ site: 22 \\T\\ R wrist. mg2 22:24 Guillermo Ramsey MD is Attending Physician. tw4 23:48 Omar Aguiar MD is Referral Physician. tw4 10/17 00:18 IV discontinued, intact, bleeding controlled, No redness/swelling at site. Pressure ea dressing applied. Administered Medications: 10/16 22:52 Drug: Keppra 500 mg Route: IV; Rate: calculated rate; Site: right antecubital; mg2 23:50 Follow up: Response: No adverse reaction; IV Status: Completed infusion; IV Intake: mg2 100ml Point of Care Testing: Blood Glucose: 21:59 Blood Glucose: 206 mg/dL; mg2 Ranges: Intake: 23:50 IV: 100ml; Total: 100ml. mg2 Outcome: 23:49 Discharge ordered by . 10/17 00:17 Discharged to home via wheelchair, with family. ea Condition: stable Discharge instructions given to patient, Instructed on discharge instructions, follow up and referral plans. Demonstrated understanding of instructions, follow-up care. 00:18 Patient left the ED. ea Signatures: Kenya Greenwood RN RN ea Davies, Jonathon, RN RN jd3 Wadley, Terrence, MD MD [facility] Gutierrez Tuttle, LOUISE GIL mg2
--- NOTE | 2019-10-17 23:49 | EDPHYS ---
Physician Documentation [facility] Name: Giovanna Bailon Age: 64 yrs Sex: Female : 1955 Arrival Date: 10/17/2019 Time: 21:43 Bed 3 Private MD: ED Physician Guillermo Ramsey HPI: 10/17 01:18 This 64 yrs old Black Female presents to ER via Ambulatory with complaints of seizure. tw4 03:54 The patient presents after having a single isolated seizure, that lasted an unknown tw4 period of time, the episode(s) was witnessed, by family. Character of seizure(s): Loss of consciousness: it is not known if the patient experienced loss of consciousness, Motor activity: blank stare, Incontinence: none, Apnea: the patient did not experience apnea, Circulation: the patient did not experience evidence of pulse disturbance. Seizure onset: today. Context: the seizure(s) was witnessed, by family. Seizure Hx: the patient has no previous seizure history. Associated injury: The patient did not suffer any apparent associated injury. 04:10 The patient has experienced a previous episode, last night. tw4 Historical: - Allergies: 10/16 21:45 Codeine; jd3 - Home Meds: 21:45 levetiracetam oral oral [Active]; cefuroxime axetil Oral [Active]; jd3 - PMHx: 21:45 Diabetes - IDDM; Fibromyalgia; Hypertension; jd3 - PSHx: 21:45 Tubal ligation; Hysterectomy; Tonsillectomy; Adenoids; jd3 - Immunization history:: Adult Immunizations up to date. - Social history:: Smoking status: unknown. ROS: 10/17 03:54 Constitutional: Negative for fever, chills, and weight loss, Eyes: Negative for injury, tw4 pain, redness, and discharge, Cardiovascular: Negative for chest pain, palpitations, and edema, Respiratory: Negative for shortness of breath, cough, wheezing, and pleuritic chest pain, Abdomen/GI: Negative for abdominal pain, nausea, vomiting, diarrhea, and constipation, Back: Negative for injury and pain, MS/Extremity: Negative for injury and deformity, Skin: Negative for injury, rash, and discoloration, Neuro: Negative for headache, weakness, numbness, tingling, and seizure. Neuro: Positive for altered mental status, seizure activity, Negative for dizziness, gait disturbance, headache, hearing loss, loss of consciousness, numbness, syncope, near syncope, tingling, tinnitus, tremor. Exam: 03:54 Constitutional: This is a well developed, well nourished patient who is awake, alert, tw4 and in no acute distress. Head/Face: Normocephalic, atraumatic. Chest/axilla: Normal chest wall appearance and motion. Nontender with no deformity. No lesions are appreciated. Cardiovascular: Regular rate and rhythm with a normal S1 and S2. No gallops, murmurs, or rubs. Normal PMI, no JVD. No pulse deficits. Respiratory: Lungs have equal breath sounds bilaterally, clear to auscultation and percussion. No rales, rhonchi or wheezes noted. No increased work of breathing, no retractions or nasal flaring. Abdomen/GI: Soft, non-tender, with normal bowel sounds. No distension or tympany. No guarding or rebound. No evidence of tenderness throughout. Back: No spinal tenderness. No costovertebral tenderness. Full range of motion. MS/ Extremity: Pulses equal, no cyanosis. Neurovascular intact. Full, normal range of motion. Neuro: Awake and alert, GCS 15, oriented to person, place, time, and situation. Cranial nerves II-XII grossly intact. Motor strength 5/5 in all extremities. Sensory grossly intact. Cerebellar exam normal. Normal gait. Vital Signs: 10/16 21:43 BP 162 / 87; Pulse 97; Resp 17 S; Temp 98.4(O); Pulse Ox 99% on R/A; Weight 88 kg (R); jd3 Height 5 ft. 0 in. (152.40 cm) (R); Pain 0/10; 23:50 BP 148 / 80; Pulse 89; Resp 18; Pulse Ox 100% on R/A; mg2 10/17 00:18 BP 140 / 78; Pulse 80; Resp 18; Temp 98.2; Pulse Ox 98% ; ea 10/16 21:43 Body Mass Index 37.89 (88.00 kg, 152.40 cm) jd3 MDM: 10/16 22:24 Patient medically screened. tw4 10/17 04:09 Data reviewed: vital signs, nurses notes. Data reviewed: lab test result(s), CBC, tw4 electrolytes, hepatic panel. Data interpreted: Pulse oximetry: Interpretation: normal. Counseling: I had a detailed discussion with the patient and/or guardian regarding: the historical points, exam findings, and any diagnostic results supporting the discharge/admit diagnosis, radiology results. Special discussion: I discussed with the patient/guardian in detail that at this point there is no indication for admission to the hospital. It is understood, however, that if the symptoms persist or worsen the patient needs to return immediately for re-evaluation. 10/16 22:07 Order name: Glucose, Ancillary Testing; Complete Time: 23:46 EDMS 10/16 23:46 Interpretation: Abnormal: GLUC,ANCIL 206. tw4 10/16 22:15 Order name: Acetaminophen 10/16 22:15 Order name: Basic Metabolic Panel 10/16 22:15 Order name: CBC with Diff 10/16 22:15 Order name: ETOH Level 10/16 22:15 Order name: Hepatic Function 10/16 22:15 Order name: PT-INR 10/16 22:15 Order name: Ptt, Activated; Complete Time: 23:46 10/16 23:47 Interpretation: Within normal limits: PTT 33.3. [facility] 10/16 22:15 Order name: Salicylate; Complete Time: 23:46 10/16 23:47 Interpretation: Abnormal: CALVIN 1.9. 10/16 22:16 Order name: Acetaminophen Level; Complete Time: 23:46 EDMS 10/16 23:47 Interpretation: Within normal limits: ACETA < 2.0. [facility] 10/16 22:16 Order name: Basic Metabolic Panel; Complete Time: 23:46 EDMS 10/16 23:47 Interpretation: Normal except: GLUC 218; GFR 77. [facility] 10/16 22:16 Order name: CBC with Automated Diff; Complete Time: 23:46 EDMS 10/16 23:47 Interpretation: Normal except: WBC 6.8; RBC 5.01; MCH 26.4. 10/16 22:16 Order name: Alcohol Serum/Plasma; Complete Time: 23:46 EDAL 10/16 23:47 Interpretation: Within normal limits: ETOH < 10. [facility] 10/16 22:15 Order name: EKG; Complete Time: 22:17 10/16 22:15 Order name: EKG - Nurse/Tech; Complete Time: 22:16 ea 10/16 22:15 Order name: IV Saline Lock; Complete Time: 22:16 ea 10/16 22:15 Order name: Labs collected and sent; Complete Time: :25 ea 10/16 22:16 Order name: Liver (Hepatic) Function; Complete Time: 23:46 EDMS 10/16 23:47 Interpretation: Normal except: ALB 2.9; GLOB 4.6; A/G 0.6. tw4 10/16 22:16 Order name: Protime (+INR); Complete Time: 23:46 EDMS 10/16 23:47 Interpretation: Within normal limits: PT 12.0. tw4 EC:52 Rate is 89 beats/min. Rhythm is regular. QRS [place] is Normal. AL interval is normal. QRS tw4 interval is normal. QT interval is normal. No Q waves. T waves are Flattened in lead III. No ST changes noted. Clinical impression: NSR w/ Non-specific ST/T Changes. Interpreted by me. Reviewed by me. Administered Medications: 10/16 22:52 Drug: Keppra 500 mg Route: IV; Rate: calculated rate; Site: right antecubital; mg2 23:50 Follow up: Response: No adverse reaction; IV Status: Completed infusion; IV Intake: mg2 100ml Point of Care Testing: Blood Glucose: 21:59 Blood Glucose: 206 mg/dL; mg2 Ranges: Critical Glucose Levels:Adult <50 mg/dl or >400 mg/dl <40 mg/dl or >180 mg/dl Disposition: 10/17/19 23:49 Discharged to Home. Impression: Epilepsy, unspecified, not intractable. - Condition is Stable. - Discharge Instructions: Nonepileptic Seizures, Seizure, Adult. - Medication Reconciliation Form, Thank You Letter, Antibiotic Education, Prescription Opioid Use form. - Follow up: Private Physician; When: Upon discharge from the Emergency Department; Reason: Recheck today's complaints, Continuance of care, Re-evaluation by your physician. Follow up: Omar Aguiar MD; When: Upon discharge from the Emergency Department; Reason: Recheck today's complaints, Continuance of care, Re-evaluation by your physician. - Problem is new. - Symptoms have improved. Signatures: Dispatcher [employer] EDAL Kenya Greenwood RN Devyn Grossman ea RN RN jd3 Guillermo Ramsey MD MD tw4 Gutierrez Tuttle RN RN mg2 Corrections: (The following items were deleted from the chart) 10/17 00:18 10/16 23:49 10/17/2019 23:49 Discharged to Home. Impression: Epilepsy, unspecified, not ea intractable. Condition is Stable. Forms are Medication Reconciliation Form, Thank You Letter, Antibiotic Education, Prescription Opioid Use. Follow up: Private Physician; When: Upon discharge from the Emergency Department; Reason: Recheck today's complaints, Continuance of care, Re-evaluation by your physician. Follow up: Omar Aguiar; When: Upon discharge from the Emergency Department; Reason: Recheck today's complaints, Continuance of care, Re-evaluation by your physician. Problem is new. Symptoms have improved. tw4 10/17 04:10 03:54 The patient has not experienced similar symptoms in the past, tw4 tw4
[2019-10-18 01:16] VITALS: BP 140/78; TEMP 98.2; O2SAT 98
== END 2019-10-18 00:18 | disposition home or self-care (01) ==
LOC: ER 21:40
DX: G40.909 Epilepsy, unspecified, not intractable, without status epilepticus (principal); I10 Essential (primary) hypertension; E11.9 Type 2 diabetes mellitus without complications; Z88.5 Allergy status to narcotic agent
CPT/HCPCS: 96365; 93005; 85025; 80048; 36415; 80320; 80329 ×2; 85610; 82947; 80076; 85730; 99284; J1953

== ENCOUNTER 2020-01-23 15:41 | Observation (INO) | payer OTHER ==
--- OUTSIDE RECORDS SUMMARY | 2020-01-23 15:44 | XMS REPORT | Continuity of Care Document ---
:1955 Author Organization [facility] t Address [address] [place] [address] Care Team Providers Name Role Phone Catherine [...] Clinicians Facility Department ID 2019-10-09 2019-10-09 Telephone NATALIIA Nixon [id number] 00:00:00 00:00:00 [facility] [id number] [place] [id number] [facility] [phone] [address] 2019-10-07 2019-10-07 Urgent Provider NHWILFRID [id number] 11:06:10 11:26:10 [facility] [id number] [facility] [place] [id number] [facility] [phone] [phone] Results This patient has no known results.
[2020-01-23] MEDS ORDERED: NA CHLORIDE 0.9% 1,000 ML ONE (16:49)
[2020-01-23] MEDS ORDERED: ASPIRIN 81 MG CHEWABLE TABLET ONE (16:49)
[2020-01-23 16:53] LABS: Absolute Lymphocytes (CBC) 2.2 K/uL (0.7-4.9); Basophils % 0.7 % (0-1.3); Hematocrit 39.3 % (36.0-45.0); Lymphocytes % 28.9 % (15.3-44.8); MPV 9.1 fL (7.6-11.3); RBC Red Blood Cell Count 4.86 M/uL (3.86-4.86)
[2020-01-23 17:04] LABS: Albumin 3.3 g/dL (3.4-5.0); Bilirubin Direct 0.1 mg/dL (0-0.2); Bilirubin Total 0.3 mg/dL (0.2-1.0); Magnesium 1.9 mg/dL (1.8-2.4); Protein, Total 8.5 g/dL (6.4-8.2); Troponin (Emerg Dept Use Only) 0.02 ng/mL (0.0-0.045)
--- NOTE | 2020-01-23 17:33 | ER ---
Nurse's Notes [facility] Name: Giovanna Bailon Age: 64 yrs Sex: Female : 1955 Arrival Date: 01/23/2020 Time: 15:42 Bed 18 Private MD: Diagnosis: Essential (primary) hypertension;Type 1 diabetes mellitus;Chest pain, unspecified Presentation: 01/22 16:01 Chief complaint: Patient states: "I started having a sore throat about a week ago and jd3 her recently am having chest pain and I am throwing up. I spoke with 2 tele docs that though it was reflux so they gave me meds for that, but it does not seem like it is helping.". Coronavirus screen: At this time, the client does not indicate any symptoms associated with coronavirus-19. Ebola Screen: Patient negative for fever greater than or equal to 101.5 degrees Fahrenheit, and additional compatible Ebola Virus Disease symptoms. Initial Sepsis Screen: Does the patient meet any 2 criteria? No. Patient's initial sepsis screen is negative. Does the patient have a suspected source of infection? No. Patient's initial sepsis screen is negative. Risk Assessment: Do you want to hurt yourself or someone else? Patient reports no desire to harm self or others. Onset of symptoms was January 16, 2020. 16:01 Method Of Arrival: Ambulatory jd3 16:01 Acuity: SATYA 3 jd3 Historical: - Allergies: 16:06 Codeine; jd3 - Home Meds: 16:06 Cefuroxime Axetil Oral [Active]; levetiracetam Oral [Active]; jd3 - PMHx: 16:06 Fibromyalgia; Diabetes - IDDM; Hypertension; jd3 - PSHx: 16:06 Hysterectomy; Tonsillectomy; Tubal ligation; Adenoids; jd3 - Immunization history:: Adult Immunizations up to date. - Social history:: Smoking status: Patient denies any tobacco usage or history of. - Family history:: not pertinent. Screenin:16 Abuse screen: Denies threats or abuse. Nutritional screening: No deficits noted. jd3 Tuberculosis screening: No symptoms or risk factors identified. Fall Risk Ambulatory Aid- None/Bed Rest/Nurse Assist (0 pts). Gait- Normal/Bed Rest/Wheelchair (0 pts) Mental Status- Oriented to own ability (0 pts). Total [place] Fall Scale indicates No Risk (0-24 pts). Assessment: 16:00 General: Appears in no apparent distress. uncomfortable, Behavior is calm, cooperative, jd3 appropriate for age. Pain: Complains of pain in chest Pain does not radiate. Pain began 2-3 days ago. Neuro: Level of Consciousness is awake, alert, obeys commands, Oriented to person, place, time, situation. Cardiovascular: Reports chest pain, Capillary refill < 3 seconds Patient's skin is warm and dry. Rhythm is regular. Respiratory: Airway is patent Respiratory effort is even, unlabored, Respiratory pattern is regular, symmetrical, Denies cough, shortness of breath. GI: No signs and/or symptoms were reported involving the gastrointestinal system. : No signs and/or symptoms were reported regarding the genitourinary system. EENT: Reports pain in the throat. Derm: Skin is intact, Skin is dry, Skin is normal, Skin temperature is warm. Musculoskeletal: Circulation, motion, and sensation intact. Range of motion: intact in all extremities. 17:08 Reassessment: Patient appears in no apparent distress at this time. Patient and/or jd3 family updated on plan of care and expected duration. Pain level reassessed. Patient is alert, oriented x 3, equal unlabored respirations, skin warm/dry/pink. 18:16 Reassessment: Patient appears in no apparent distress at this time. Patient and/or jd3 family updated on plan of care and expected duration. Pain level reassessed. Patient is alert, oriented x 3, equal unlabored respirations, skin warm/dry/pink. awaiting hospitalization. Vital Signs: 16:06 BP 158 / 79; Pulse 103; Resp 16 S; Temp 97.7(O); Pulse Ox 98% on R/A; Weight 85.28 kg jd3 (R); Height 5 ft. 0 in. (152.40 cm) (R); Pain 8/10; 18:17 BP 154 / 94; Pulse 91; Resp 17 S; Pulse Ox 98% on R/A; jd3 16:06 Body Mass Index 36.72 (85.28 kg, 152.40 cm) [facility] ED Course: 15:42 Patient arrived in ED. as 15:58 Lauro Wilkerson MD is Attending Physician. [facility] 16:00 Devyn Griffin, RN is Primary Nurse. jd3 16:03 Triage completed. jd3 16:08 Arm band placed on. jd3 16:08 EKG completed in triage. Results shown to . jd3 16:36 Inserted saline lock: 22 gauge in left hand, using aseptic technique. Blood collected. 4 17:08 XRAY Chest (1 view) In Process Unspecified. EDIL 17:30 Pete Grace DO is Hospitalizing Provider. [facility] 18:16 Patient has correct armband on for positive identification. Placed in gown. Bed in low jd3 position. Call light in reach. Side rails up X 1. exploration engineer on. Pulse ox on. NIBP on. 18:16 Patient maintains SpO2 saturation greater than 95% on room air. jd3 19:50 No provider procedures requiring assistance completed. Patient admitted, IV remains in mg2 place. 20:04 covid swab sen tto lab. mg2 Administered Medications: 16:47 Drug: NS 0.9% 1000 ml Route: IV; Rate: 125 ml/hr; Site: left hand; jd3 19:50 Follow up: Response: No adverse reaction; IV Status: Infusion continued upon admission mg2 16:47 Drug: Aspirin 81 mg Route: PO; jd3 19:50 Follow up: Response: No adverse reaction mg2 17:50 Drug: Lovenox 1 mg/kg Route: Sub-Q; Site: abdomen; jd3 19:44 Follow up: Response: No adverse reaction mg2 17:50 Drug: Lopressor 25 mg Route: PO; jd3 19:43 Follow up: Response: No adverse reaction mg2 17:50 Drug: Pepcid 20 mg Route: IVP; Site: left hand; jd3 19:43 Follow up: Response: No adverse reaction mg2 Outcome: 17:32 Decision to Hospitalize by Provider. sharon 19:50 Admitted to Med/surg accompanied by tech, via wheelchair, room 225, with chart, Report mg2 called to LOUISE Melendrez 19:50 Condition: stable 19:50 Instructed on the need for admit, Demonstrated understanding of instructions. 20:05 Patient left the ED. mg2 Signatures: Dispatcher [employer] EDIL Lauro Wilkerson MD MD cha Martinez, Amelia as Devyn Griffin, LOUISE RN jGutierrez Boone RN RN mg2 Macario Dada 4
--- NOTE | 2020-01-23 17:33 | EDPHYS ---
Physician Documentation [facility] Name: Giovanna Bailon Age: 64 yrs Sex: Female : 1955 Arrival Date: 01/23/2020 Time: 15:42 Bed 18 Private MD: ED Physician Lauro Wilkerson HPI: 01/22 16:33 This 64 yrs old Black Female presents to ER via Ambulatory with complaints of Chest sharon Pain, Vomiting, Sore Throat. 16:33 The patient or guardian reports chest pain that is located primarily in the anterior sharon chest wall, bilaterally. Onset: 5 day(s) ago. The pain does not radiate. Associated signs and symptoms: Pertinent positives: None. Pertinent negatives: None. The chest pain is described as bilateral ear pain, throat sore to swallow. Duration: The patient or guardian reports multiple episodes, with no pattern. Modifying factors: The symptoms are alleviated by nothing. the symptoms are aggravated by nothing. Severity of pain: At its worst the pain was mild in the emergency department the pain is unchanged. The patient has not experienced similar symptoms in the past. Historical: - Allergies: 16:06 Codeine; jd3 - Home Meds: 16:06 Cefuroxime Axetil Oral [Active]; levetiracetam Oral [Active]; jd3 - PMHx: 16:06 Fibromyalgia; Diabetes - IDDM; Hypertension; jd3 - PSHx: 16:06 Hysterectomy; Tonsillectomy; Tubal ligation; Adenoids; jd3 - Immunization history:: Adult Immunizations up to date. - Social history:: Smoking status: Patient denies any tobacco usage or history of. - Family history:: not pertinent. ROS: 16:33 Constitutional: Negative for fever, chills, and weight loss, Eyes: Negative for injury, sharon pain, redness, and discharge, Neck: Negative for injury, pain, and swelling, Respiratory: Negative for shortness of breath, cough, wheezing, and pleuritic chest pain, Abdomen/GI: Negative for abdominal pain, nausea, vomiting, diarrhea, and constipation, Back: Negative for injury and pain, : Negative for injury, bleeding, discharge, and swelling, MS/Extremity: Negative for injury and deformity, Skin: Negative for injury, rash, and discoloration, Neuro: Negative for headache, weakness, numbness, tingling, and seizure. 16:33 ENT: Positive for ear pain, sore throat. 16:33 Cardiovascular: Positive for chest pain. Exam: 16:33 Constitutional: This is a well developed, well nourished patient who is awake, alert, sharon and in no acute distress. Head/Face: Normocephalic, atraumatic. Eyes: Pupils equal round and reactive to light, extra-ocular motions intact. Lids and lashes normal. Conjunctiva and sclera are non-icteric and not injected. Cornea within normal limits. Periorbital areas with no swelling, redness, or edema. ENT: Nares patent. No nasal discharge, no septal abnormalities noted. Tympanic membranes are normal and external auditory canals are clear. Oropharynx with no redness, swelling, or masses, exudates, or evidence of obstruction, uvula midline. Mucous membranes moist. Neck: Trachea midline, no thyromegaly or masses palpated, and no cervical lymphadenopathy. Supple, full range of motion without nuchal rigidity, or vertebral point tenderness. No Meningismus. Chest/axilla: Normal chest wall appearance and motion. Nontender with no deformity. No lesions are appreciated. Cardiovascular: Regular rate and rhythm with a normal S1 and S2. No gallops, murmurs, or rubs. Normal PMI, no JVD. No pulse deficits. Respiratory: Lungs have equal breath sounds bilaterally, clear to auscultation and percussion. No rales, rhonchi or wheezes noted. No increased work of breathing, no retractions or nasal flaring. Abdomen/GI: Soft, non-tender, with normal bowel sounds. No distension or tympany. No guarding or rebound. No evidence of tenderness throughout. Back: No spinal tenderness. No costovertebral tenderness. Full range of motion. Female : Normal external genitalia. Skin: Warm, dry with normal turgor. Normal color with no rashes, no lesions, and no evidence of cellulitis. MS/ Extremity: Pulses equal, no cyanosis. Neurovascular intact. Full, normal range of motion. Neuro: Awake and alert, GCS 15, oriented to person, place, time, and situation. Cranial nerves II-XII grossly intact. Motor strength 5/5 in all extremities. Sensory grossly intact. Cerebellar exam normal. Normal gait. Psych: Awake, alert, with orientation to person, place and time. Behavior, mood, and affect are within normal limits. 16:40 ECG was reviewed by the Attending Physician. sharon Vital Signs: 16:06 BP 158 / 79; Pulse 103; Resp 16 S; Temp 97.7(O); Pulse Ox 98% on R/A; Weight 85.28 kg jd3 (R); Height 5 ft. 0 in. (152.40 cm) (R); Pain 8/10; 18:17 BP 154 / 94; Pulse 91; Resp 17 S; Pulse Ox 98% on R/A; jd3 16:06 Body Mass Index 36.72 (85.28 kg, 152.40 cm) jd3 MDM: 16:16 Patient medically screened. sharon 16:37 Differential diagnosis: abnormal EKG, acute myocardial infarction, chest wall pain, sharon esophagitis, hiatal hernia, myocarditis, pericarditis, pneumonia, pneumothorax, pulmonary embolus, stable angina, unstable angina. HEART Score: History: Slightly Suspicious (0), ECG: Normal (0), Age: > 45 and < 65 years (1), Risk Factors: > or = 3 Risk factors for atherosclerotic disease (2), [Hypercholesterolemia] [Hypertension] [DM] [+ Family HX] Troponin: < or = 1 x Normal Limit (0). The patient was given aspirin in the Emergency Department. The patient's deep vein thrombosis risk score was calculated as follows: Total Score: 0. This patient was found to be at low risk for a deep vein thrombosis by using the Well's assessment criteria. The patient's pulmonary embolism risk score was calculated as follows: Total Score: 0-2 points. This patient was found to be at low risk for a pulmonary embolism by using the Well's assessment criteria. JONEL Risk Score: TOTAL SCORE = 0. Data reviewed: vital signs, nurses notes, lab test result(s), EKG, radiologic studies, plain films. Data interpreted: corrections caseworker: rate is 103 beats/min, rhythm is regular, Pulse oximetry: on room air is 98 %. Test interpretation: by ED physician or midlevel provider: ECG, plain radiologic studies. Counseling: I had a detailed discussion with the patient and/or guardian regarding: the historical points, exam findings, and any diagnostic results supporting the discharge/admit diagnosis, the presence of at least one elevated blood pressure reading (>120/80) during this emergency department visit, lab results, radiology results. 01/22 16:02 Order name: Basic Metabolic Panel; Complete Time: 17:27 [facility] 01/22 16:02 Order name: CBC with Diff; Complete Time: 17:27 [facility] 01/22 16:02 Order name: LFT's; Complete Time: 17:27 [facility] 01/22 16:02 Order name: Magnesium; Complete Time: 17:27 [facility] 01/22 16:02 Order name: NT PRO-BNP; Complete Time: 17:27 [facility] 01/22 16:02 Order name: Troponin (emerg Dept Use Only); Complete Time: 17:27 [facility] 01/22 16:02 Order name: XRAY Chest (1 view); Complete Time: 18:05 [facility] 01/22 16:02 Order name: Lipase; Complete Time: 17:27 [facility] 01/22 16:02 Order name: Strep; Complete Time: 17:27 [facility] 01/22 17:24 Order name: Throat Culture EDIN 01/22 19:43 Order name: Urine Microscopic Only [facility] [place] 01/22 19:50 Order name: COVID-19 [facility] [place] 01/22 16:02 Order name: EKG; Complete Time: 16:03 [facility] 01/22 16:02 Order name: Cardiac monitoring; Complete Time: 16:16 [facility] 01/22 16:02 Order name: EKG - Nurse/Tech; Complete Time: 16:16 [facility] 01/22 16:02 Order name: IV Saline Lock; Complete Time: 16:34 [facility] 01/22 16:02 Order name: Labs collected and sent; Complete Time: 16:34 [facility] 01/22 16:02 Order name: O2 Per Protocol; Complete Time: 16:16 [facility] 01/22 16:02 Order name: O2 Sat Monitoring; Complete Time: 16:16 [facility] 01/22 16:02 Order name: Urine Dipstick-Ancillary (obtain specimen); Complete Time: 19:38 [facility] EC:40 Rate is 99 beats/min. Rhythm is regular. QRS [place] is Normal. MT interval is normal. QRS sharon interval is normal. QT interval is normal. No Q waves. T waves are Normal. No ST changes noted. Clinical impression: Normal ECG and No evidence of ischemia. Interpreted by me. Reviewed by me. Administered Medications: 16:47 Drug: NS 0.9% 1000 ml Route: IV; Rate: 125 ml/hr; Site: left hand; jd3 19:50 Follow up: Response: No adverse reaction; IV Status: Infusion continued upon admission mg2 16:47 Drug: Aspirin 81 mg Route: PO; jd3 19:50 Follow up: Response: No adverse reaction mg2 17:50 Drug: Lovenox 1 mg/kg Route: Sub-Q; Site: abdomen; jd3 19:44 Follow up: Response: No adverse reaction mg2 17:50 Drug: Lopressor 25 mg Route: PO; jd3 19:43 Follow up: Response: No adverse reaction mg2 17:50 Drug: Pepcid 20 mg Route: IVP; Site: left hand; jd3 19:43 Follow up: Response: No adverse reaction mg2 Disposition: 01/23/20 17:32 Hospitalization ordered by Pete Grace for Observation. Preliminary diagnosis are Essential (primary) hypertension, Type 1 diabetes mellitus, Chest pain, unspecified. - Bed requested for Telemetry/MedSurg (observation). - Status is Observation. mg2 - Condition is Stable. - Problem is new. - Symptoms have improved. Signatures: Dispatcher [employer] EDIN Lauro Wilkerson MD MD cha Attema, Lee, MARINE SERVICE MANAGER-C MARINE SERVICE MANAGER-Cla1 Park Osborne, LOUISE RN cg Devyn Griffin RN RN jGutierrez Boone RN RN mg2 Corrections: (The following items were deleted from the chart) 19:38 17:32 Hospitalization Ordered by Pete Grace DO for Observation. Preliminary cg diagnosis is Essential (primary) hypertension; Type 1 diabetes mellitus; Chest pain, unspecified. Bed requested for Telemetry/MedSurg (observation). Status is Observation. Condition is Stable. Problem is new. Symptoms have improved. sharon 20:05 19:38 01/23/2020 17:32 Hospitalization Ordered by Pete Grace DO for Observation. mg2 Preliminary diagnosis is Essential (primary) hypertension; Type 1 diabetes mellitus; Chest pain, unspecified. Bed requested for Telemetry/MedSurg (observation). Status is Observation. Condition is Stable. Problem is new. Symptoms have improved. cg
[2020-01-23] MEDS ORDERED: METOPROLOL TAR 25 MG TAB ONE (17:54)
[2020-01-23] MEDS ORDERED: ENOXAPARIN 80 MG/0.8 ML SQ ONE (17:54)
[2020-01-23] MEDS ORDERED: FAMOTIDINE 20 MG/2 ML VIAL IV ONE (17:54)
--- NOTE | 2020-01-23 17:55 | RAD REPORT ---
EXAM DESCRIPTION: Ashley Single View01/23/2020 5:08 pm CLINICAL HISTORY: Chest pain COMPARISON: September 2019 FINDINGS: The lungs appear clear of acute infiltrate. The heart is borderline enlarged IMPRESSION: No acute abnormalities displayed
--- NOTE | 2020-01-23 18:50 | P.HP ---
Certification for Inpatient Patient admitted to: Observation With expected LOS: <2 Midnights Patient will require the following post-hospital care: None Practitioner: I am a practitioner with admitting privileges, knowledge of patient current condition, hospital course, and medical plan of care. Services: Services provided to patient in accordance with Admission requirements found in Title 42 Section 412.3 of the Code of Federal Regulations <Frankie Olsen - Last Filed: 01/23/20 18:46> Patient admitted to: Observation <Pete Grace - Last Filed: 01/24/20 11:13> Patient History Date of Service: 01/23/20 Primary Care Provider: [facility] Reason for admission: Chest Pain History of Present Illness: 64-year-old Afro-Portuguese female with history of diabetes mellitus type 2, hypertension, hyperlipidemia, seizure disorder presents emergency department for throat/chest pain. Patient reports that she is having the pain for the last approximately 5 days. Patient describes the pain as retrosternal, spasming/burning, intermittent. Pain is not associated with any additional signs or symptoms. Pain is exacerbated by eating and lying flat. Workup in the emergency department significant for a glucose of 270, troponin negative, chest x-ray unremarkable. Patient with reports that she had stress test and heart catheterization greater than 10 years ago which were normal at that time without stent placement or angioplasty. ED provider wishes to admit patient for chest pain observation. When I saw the patient in the emergency department she is awake, alert, oriented x3. Patient did have 1 episode of Spasming pain while I was in the room with her. Patient be admitted for observation. 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 - Family History Mother -: Heart disease, Hypertension, Diabetes, Stroke Sister -: Hypertension, Diabetes Brother -: Diabetes - Social History Alcohol use: No CD- Drugs: No Caffeine use: No Place of Residence: Home <Frankie Olsen - Last Filed: 01/23/20 18:46> Date of Service: 01/24/20 Home medications list reviewed: Yes - Social History Smoking Status: Unknown if ever smoked <Pete Grace - Last Filed: 01/24/20 11:13> Allergies codeine Allergy (Verified 01/23/20 21:34) confusion Home Medications: Aspirin Chewable [Aspirin Chewable*] 1 tab PO DAILY 01/23/20 Calcium Carbonate/Vitamin D3 [Calcium 500Mg-Vit D3 15Mcg Tab] 2 tab PO DAILY 01/23/20 Lisinopril/Hydrochlorothiazide [Lisinopril-Hctz 20-25 mg Tab] 1 tab PO DAILY 01/23/20 Vit C/E/Zn/Coppr/Lutein/Zeaxan [Healthy Eyes Lutein-Zeaxthn Cp] 1 cap PO DAILY 01/23/20 levETIRAcetam [Keppra*] 500 mg PO BID 01/23/20 Insulin Detemir [Levemir Flextouch] 25 unit SQ BEDTIME #1 packet 01/24/20 Metoprolol Tartrate [Lopressor*] 25 mg PO BID 6AM 6PM #60 tab 01/24/20 Pantoprazole [Protonix Tab] 40 mg PO DAILY #30 tab 01/24/20 Review of Systems 10-point ROS is otherwise unremarkable Cardiovascular: Chest Pain Gastrointestinal: Nausea, Vomiting <Frankie Olsen - Last Filed: 01/23/20 18:46> Physical Examination - Physical Exam General: Alert, In no apparent distress HEENT: Atraumatic, PERRLA, Mucous membr. moist/pink Neck: Supple, 2+ carotid pulse no bruit, No LAD Respiratory: Clear to auscultation bilaterally, Normal air movement Cardiovascular: Regular rate/rhythm, Normal S1 S2 Gastrointestinal: Normal bowel sounds, No tenderness Musculoskeletal: No tenderness Integumentary: No rashes Neurological: Normal speech, Normal strength at 5/5 x4 extr, Normal tone, Normal affect - Studies Laboratory Data (last 24 hrs) 01/23/20 16:35: WBC 7.6, Hgb 13.1, Hct 39.3, Plt Count 221 01/23/20 16:35: Sodium 136, Potassium 4.0, BUN 11, Creatinine 1.02, Glucose 270 H, Magnesium 1.9, Total Bilirubin 0.3, AST 24, ALT 40, Alkaline Phosphatase 133 H, Lipase 207 Microbiology Data (last 24 hrs): 01/23/20 16:41 Throat Group A Streptococcus Rapid Screen - Final <Frankei Olsen - Last Filed: 01/23/20 18:46> - Studies Laboratory Data (last 24 hrs) 01/23/20 16:35: WBC 7.6, Hgb 13.1, Hct 39.3, Plt Count 221 01/23/20 16:35: Sodium 136, Potassium 4.0, BUN 11, Creatinine 1.02, Glucose 270 H, Magnesium 1.9, Total Bilirubin 0.3, AST 24, ALT 40, Alkaline Phosphatase 133 H, Lipase 207 Microbiology Data (last 24 hrs): 01/23/20 16:41 Throat Group A Streptococcus Rapid Screen - Final <Pete Grace - Last Filed: 01/24/20 11:13> Assessment and Plan - Plan Assessment Chest pain rule out ACS Diabetes mellitus type 2-uncontrolled Hypertension Hyperlipidemia Seizure disorder Plan Chest pain rule out ACS: Will trend troponin, cardiology consult in place. Monitor on telemetry. Daily aspirin, added beta-stacey, continue home medications. DVT prophylaxis Lovenox 40 mg subcutaneous once daily. Appreciate further input from cardiology. Diabetes mellitus type 2-uncontrolled: A.c. HS Accu-Cheks, sliding scale insulin therapy. Patient had A1c with PCP approximately 2 months ago and is due for another 1 in approximately 1 month. Will allow her to manage this further with primary care. Hypertension: Home medications continued, added beta-stacey with parameters. Hyperlipidemia: Patient reports that in the past she has not tolerated statin medications although she is unsure of what the problem was. Will check lipid panel with morning labs. Seizure disorder: Continue Keppra 500 mg b.i.d.. Discharge Plan: Home Plan to discharge in: 24 Hours - Advance Directives Does patient have a Living Will: No Does patient have a Durable POA for Healthcare: No - Code Status/Comfort Care Code Status Assessed: Yes (Full code) Critical Care: No Time Spent Managing Pts Care (In Minutes): 55 <Frankie Olsen - Last Filed: 01/23/20 18:46> - Plan Case discussed in detail with nurse practitioner. Agree with evaluation, assessment and plan of care. Cardiac enzymes unremarkable. Case discussed with cardiology. No intervention needed at this time. Additional medication includes metoprolol for better blood pressure control. Will recommend to discontinue Prilosec and change to Protonix. Please see discharge summary for details. <Pete Grace - Last Filed: 01/24/20 11:13>
[2020-01-23] MEDS ORDERED: ONDANSETRON 4 MG/2 ML VIAL IV PRN (20:23)
[2020-01-23] MEDS ORDERED: ACETAMINOPHEN 500 MG TAB PO PRN (20:23)
[2020-01-23 20:24] VITALS: O2SAT 98
[2020-01-23 20:43] VITALS: BMI 37.7
[2020-01-23] MEDS: levETIRAcetam 500 MG TAB PO SCH (21:00)
[2020-01-23 21:06] LABS: Urine Bacteria <20 /HPF (<20); Urine Culture Reflex Order NOT NEEDED; Urine RBC <5 /HPF (NONE SEEN)
[2020-01-23] MEDS: INSULIN -REGULAR HUMAN 50 UNIT/0.5 ML ML SQ SCH (21:10)
[2020-01-23] MEDS: NITROGLYCERIN 0.4 MG/TAB SL PRN (21:11)
[2020-01-24 03:25] LABS: Absolute Lymphocytes (CBC) 2.8 K/uL (0.7-4.9); Basophils % 0.6 % (0-1.3); Hematocrit 36.8 % (36.0-45.0); Lymphocytes % 36.2 % (15.3-44.8); MPV 9.3 fL (7.6-11.3)
[2020-01-24 03:46] LABS: BUN Blood Urea Nitrogen 9 mg/dL (7-18); Bicarbonate 29 mmol/L (21-32); Glucose Level 245 mg/dL (74-106); HDL Cholesterol 39 mg/dL (40-60); LDL Cholesterol, Calculated 113 (<130); Magnesium 1.9 mg/dL (1.8-2.4); Potassium 3.6 mmol/L (3.5-5.1); Sodium Level 138 mmol/L (136-145)
[2020-01-24] MEDS ORDERED: METOPROLOL TAR 25 MG TAB PO SCH (06:00)
[2020-01-24] MEDS ORDERED: PANTOPRAZOLE 40MG TABLET PO SCH (06:30)
[2020-01-24] MEDS ORDERED: INFLUENZA VACCINE (for 3y+) 0.5 ML DOSE IMVAC ONE (07:00)
[2020-01-24 08:44] VITALS: TEMP 97
[2020-01-24] MEDS ORDERED: ENOXAPARIN 40 MG/0.4 ML SQ SCH (09:00)
[2020-01-24] MEDS ORDERED: ASPIRIN EC 81 MG TAB PO SCH (09:00)
[2020-01-24] MEDS ORDERED: lisinopriL 20 MG TAB PO SCH (09:00)
[2020-01-24] MEDS ORDERED: hydroCHLOROthiazide 25 MG TAB PO SCH (09:00)
[2020-01-24] MEDS ORDERED: POTASSIUM CL SA 10 MEQ TAB PO ONE (09:00)
[2020-01-24] MEDS: INSULIN -REGULAR HUMAN 50 UNIT/0.5 ML ML SQ SCH ×2 (09:02→11:50)
[2020-01-24] MEDS: levETIRAcetam 500 MG TAB PO SCH (09:07)
--- NOTE | 2020-01-24 10:12 | EKG ---
Test Date: 2020-01-23 Test Time: 16:13:08 Steam Box Tender: BALDO MEASUREMENT RESULTS: Intervals: Rate: 99 NE: 142 QRSD: 70 QT: 348 QTc: 446 [place]: P: 58 NE: 142 QRS: 2 T: 37 INTERPRETIVE STATEMENTS: Normal sinus rhythm Normal ECG Compared to ECG 10/17/2019 21:52:26 T-wave abnormality no longer present Electronically Signed On 01-24-20 10:10:11 POWER SHOVEL ENGINEER by Lenny Armenta
--- NOTE | 2020-01-24 10:50 | P.DS ---
Admission Date: 01/23/20 Discharge Date: 01/24/20 Primary Care Provider: Judah Mack Disposition: ROUTINE DISCHARGE Discharge Condition: GOOD Reason for Admission: Chest Pain Consultations: Cardiology-Dr. Armenta Procedures: COVID: Pending at discharge CXR: COMPARISON: September 2019 FINDINGS: The lungs appear clear of acute infiltrate. 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 Patient reports that she is having the pain for the last approximately 5 days. Patient describes the pain as retrosternal, spasming/burning, intermittent. Pain is not associated with any additional signs or symptoms. Pain is exacerbated by eating and lying flat. Workup in the emergency department significant for a glucose of 270, troponin negative, chest x-ray unremarkable. Patient with reports that she had stress test and heart catheterization greater than 10 years ago which were normal at that time without stent placement or angioplasty. ED provider wishes to admit patient for chest pain observation. Hospital Course: Patient presented with chest pain and throat pain. Patient reported worse with eating. Patient was admitted for further evaluation and treatment. Cardiac enzymes unremarkable. No significant EKG changes noted. Cardiology was consulted to further evaluate. Cardiology felt this was noncardiac in nature. Send this may be related to GERD. Patient takes Prilosec at home. At discharge will recommend to discontinue Prilosec and change to Protonix. At discharge she will continue with Protonix 40 mg daily. GERD education provided. At discharge will recommend follow up with GI if symptoms persist as the patient may require EGD in the future. Cardiology recommends follow up in 1-2 weeks to follow up this hospitalization. Patient will have outpatient cardiac stress test and echocardiogram for further evaluation. Patient had elevated blood pressure. Patient with history of hypertension. Patient takes lisinopril hydrochlorothiazide. Additional medication included metoprolol. Blood pressure improved. At discharge she will continue with lisinopril/hydrochlorothiazide 20/25 mg daily and metoprolol 25 mg 1 pill twice daily. May need to hold metoprolol if blood pressure less than 110 systolic or heart rate less than 50. Recommend to maintain blood pressure less 130/80. Further adjustment can be done by her PCP. Patient with diabetes mellitus type 2 insulin dependent. Blood sugar elevated. A1c obtained. Prior A1c elevated in September. Patient takes Levemir 22 units at bedtime. At discharge will recommend to increase Levemir to 25 units at bedtime. Patient may need to increase her insulin by 2-3 units if blood sugars remain above 200. Recommend to maintain blood sugar less than 140 fasting and less than 200 after meals. Further adjustment in medication can be done by her PCP. Close follow-up is recommended to control her blood sugars. Patient with seizure disorder. At discharge she will continue with her medic ation Keppra 500 mg 1 pill twice daily. Recommend follow up with neurology as directed. Patient with obesity, BMI 37.7. Lifestyle modification education provided. Patient may have underlying obstructive sleep apnea. Recommend follow up with pulmonology as an outpatient to further evaluate. Patient may benefit with sleep study to further address. Vital Signs/Physical Exam: Temp Pulse Resp BP Pulse Ox 97.0 F 66 16 157/66 H 100 01/24/20 08:00 01/24/20 09:07 01/24/20 08:00 01/24/20 09:07 01/24/20 08:00 General: Alert, In no apparent distress, Oriented x3, Cooperative HEENT: Atraumatic Neck: Supple Respiratory: Clear to auscultation bilaterally, Normal air movement Cardiovascular: Normal pulses, Regular rate/rhythm Gastrointestinal: Normal bowel sounds, Soft and benign, Non-distended, No tenderness, No masses, No rebound, No guarding Musculoskeletal: No erythema, No tenderness, No warmth Integumentary: No tenderness/swelling, No erythema, No warmth, No cyanosis Neurological: Normal speech, Normal strength at 5/5 x4 extr, Normal tone, Normal affect Laboratory Data at Discharge: WBC 7.8 K/uL (4.3-10.9) 01/24/20 03:04 Hgb 12.0 g/dL (12.0-15.0) 01/24/20 03:04 Hct 36.8 % (36.0-45.0) 01/24/20 03:04 Plt Count 205 K/uL (152-406) 01/24/20 03:04 Sodium 138 mmol/L (136-145) 01/24/20 03:04 Potassium 3.6 mmol/L (3.5-5.1) 01/24/20 03:04 BUN 9 mg/dL (7-18) 01/24/20 03:04 Creatinine 0.75 mg/dL (0.55-1.3) 01/24/20 03:04 Glucose 245 mg/dL (74-106) H 01/24/20 03:04 Magnesium 1.9 mg/dL (1.8-2.4) 01/24/20 03:04 Total Bilirubin 0.3 mg/dL (0.2-1.0) 01/23/20 16:35 AST 24 U/L (15-37) 01/23/20 16:35 ALT 40 U/L (12-78) 01/23/20 16:35 Alkaline Phosphatase 133 U/L (45-117) H 01/23/20 16:35 Troponin I 0.02 ng/mL (0.0-0.045) 01/24/20 03:04 Triglycerides 155 mg/dL (<150) H 01/24/20 03:04 Cholesterol 183 mg/dL (<200) 01/24/20 03:04 HDL Cholesterol 39 mg/dL (40-60) L 01/24/20 03:04 Cholesterol/HDL Ratio 4.69 01/24/20 03:04 Lipase 207 U/L (73-393) 01/23/20 16:35 Home Medications: Aspirin Chewable [Aspirin Chewable*] 1 tab PO DAILY 01/23/20 Calcium Carbonate/Vitamin D3 [Calcium 500Mg-Vit D3 15Mcg Tab] 2 tab PO DAILY 01/23/20 Lisinopril/Hydrochlorothiazide [Lisinopril-Hctz 20-25 mg Tab] 1 tab PO DAILY 01/23/20 Vit C/E/Zn/Coppr/Lutein/Zeaxan [Healthy Eyes Lutein-Zeaxthn Cp] 1 cap PO DAILY 01/23/20 levETIRAcetam [Keppra*] 500 mg PO BID 01/23/20 Insulin Detemir [Levemir Flextouch] 25 unit SQ BEDTIME #1 packet 01/24/20 Metoprolol Tartrate [Lopressor*] 25 mg PO BID 6AM 6PM #60 tab 01/24/20 Pantoprazole [Protonix Tab] 40 mg PO DAILY #30 tab 01/24/20 New Medications: Insulin Detemir [Levemir Flextouch] 25 unit SQ BEDTIME #1 packet Metoprolol Tartrate [Lopressor*] 25 mg PO BID 6AM 6PM #60 tab Pantoprazole [Protonix Tab] 40 mg PO DAILY #30 tab Patient Discharge Instructions: 1. Recommend follow up with PCP in 1 week to follow up this hospitalization. 2. Patient presented with chest pain and throat pain. Patient reported worse with eating. Patient was admitted for further evaluation and treatment. Cardiac enzymes unremarkable. No significant EKG changes noted. Cardiology was consulted to further evaluate. Cardiology felt this was noncardiac in nature. Send this may be related to GERD. Patient takes Prilosec at home. At discharge will recommend to discontinue Prilosec and change to Protonix. At discharge she will continue with Protonix 40 mg daily. GERD education provided. At discharge will recommend follow up with GI if symptoms persist as the patient may require EGD in the future. Cardiology recommends follow up in 1-2 weeks to follow up this hospitalization. Patient w ill have outpatient cardiac stress test and echocardiogram for further evaluation. 3. Patient had elevated blood pressure. Patient with history of hypertension. Patient takes lisinopril hydrochlorothiazide. Additional medication included metoprolol. Blood pressure improved. At discharge she will continue with lisinopril/hydrochlorothiazide 20/25 mg daily and metoprolol 25 mg 1 pill twice daily. May need to hold metoprolol if blood pressure less than 110 systolic or heart rate less than 50. Recommend to maintain blood pressure less 130/80. Further adjustment can be done by her PCP. 4. Patient with diabetes mellitus type 2 insulin dependent. Blood sugar elevated. A1c obtained. Prior A1c elevated in September. Patient takes Levemir 22 units at bedtime. At discharge will recommend to increase Levemir to 25 units at bedtime. Patient may need to increase her insulin by 2-3 units if blood sugars remain above 200. Recommend to maintain blood sugar less than 140 fasting and less than 200 after meals. Further adjustment in medication can be done by her PCP. Close follow-up is recommended to control her blood sugars. 5. Patient with seizure disorder. At discharge she will continue with her medication Keppra 500 mg 1 pill twice daily. Recommend follow up with neurology as directed. 6. Patient with obesity, BMI 37.7. Lifestyle modification education provided. 7. Patient may have underlying obstructive sleep apnea. Recommend follow up with pulmonology as an outpatient to further evaluate. Patient may benefit with sleep study to further address. Diet: ADA Activity: Ad cherri Followup: BARRERA RUST [Primary Care Provider] - Time spent managing pt's care (in minutes): 55
[2020-01-24] MEDS: NITROGLYCERIN 0.4 MG/TAB SL PRN (11:49)
--- NOTE | 2020-01-24 11:54 | CON ---
Date of Consultation: 01/24/2020 Admitted with chest pain by Dr. Grace on 01/23/2020. I saw the patient on 01/24/2020. History Of Present Illness: Ms. Bailon is a 64-year-old woman with a history of fibromyalgia, diabete s, and hypertension. No previous cardiac history in the past. She has had an abnormal echo and a ca theterization that was normal. Apparently had a stress test, but could not tolerate it because of ch est pain, so Dr. Yeager did a catheterization on her, but did not find anything. She was just told that she has a murmur. She came in with what she describes as pinching kind of pain over the right a nterior chest that would last seconds, but would come back intermittently for about a day or 2. No P ND, orthopnea, pedal edema, palpitation, or syncope. Denied any fever or chills or cough. Past Medical History: As stated above. Allergies: SHE IS ALLERGIC TO CODEINE. Medications: At home include cefuroxime. Family History: Negative. Social History: Negative. Family History: Noncontributory. Physical Examination: Vital Signs: Stable. She was afebrile. HEENT: Negative. Neck: Supple with no bruit. Chest: Clear to auscultation and percussion. Cardiac: Revealed a regular rhythm and rate. No murmurs, gallops, or rubs. Abdomen: Benign. Extremities: Revealed no clubbing, cyanosis, or edema. Diagnostic Data: EKG was normal. Glucose was 161. Chest x-ray is normal. The rest of the blood wo rk was unremarkable. Impression And Plan: Atypical chest pain, noncardiac in nature, possibly muscle or esophageal spasm secondary to her cardiomyalgia. EKG and chest x-ray are normal. In September 2019, she had extensive bra in workup, which was unremarkable and was actually seen by Dr. Aguiar. Her last echocardiogram jordan t we have available here is from 2014 that was normal. She also had a stress test in 2014 that was n ormal. Ms. Bailon's pain certainly could be secondary to her fibromyalgia. I am very comfortable wit h her going home and will be happy to see her in the office in the next 2 to 4 weeks, especially if h er symptoms persist. NB/MODL Voice ID: [id number] Report ID: [id number]
[2020-01-24 12:15] VITALS: BP 147/77
== END 2020-01-24 12:53 | disposition home or self-care (01) ==
LOC: ER 15:41 → ERHOLD 18:39 → 2ND 19:50
PROVIDERS: ADMIT Family Medicine; ATTEND Family Medicine
DX: R07.89 Other chest pain (principal); M79.7 Fibromyalgia; I10 Essential (primary) hypertension; E11.65 Type 2 diabetes mellitus with hyperglycemia; Z20.828 Contact with and (suspected) exposure to other viral communicable diseases; G40.909 Epilepsy, unspecified, not intractable, without status epilepticus; E66.9 Obesity, unspecified; Z68.37 Body mass index [BMI] 37.0-37.9, adult; E78.5 Hyperlipidemia, unspecified; Z79.4 Long term (current) use of insulin; I34.1 Nonrheumatic mitral (valve) prolapse; Z23 Encounter for immunization
CPT/HCPCS: 96361; 93005; 87070; 85025 ×2; 80048 ×2; 36415; 83735 ×2; 80061; 82947 ×3; 80076; 87081; 84443; 81015; 84484 ×3; 84439; 83690; 83880; 71045; 90471; 96372; 96374; 99285; U0002; Q2035; J1650; J7030; G0378 ×3